=== PATIENT | female | born 1950 | race Caucasian/White ===

== ENCOUNTER 2020-01-09 00:33 | Outpatient (CLI) | payer MEDICARE, SELFPAY ==
[2020-01-09 18:31] LABS: SARS-CoV-2 RNA PCR Negative
== END 2020-01-09 00:34 | disposition home or self-care (01) ==
LOC: ANHCOVIDDT 00:34
PROVIDERS: PCP Internal Medicine; Visit Provider Internal Medicine Gastroenterology
DX: Z01.812 Encounter for preprocedural laboratory examination (principal); Z11.59 Encounter for screening for other viral diseases
CPT/HCPCS: 87635; C9803; U0003

== ENCOUNTER 2020-01-12 02:17 | Day surgery (SDC) | payer MEDICARE, SELFPAY ==
[2020-01-01 13:10] VITALS: BMI 29.1
[2020-01-12] MEDS: LACTATED RINGERS 1,000 ML 150 ML IV CONT (07:19)
[2020-01-12 07:23] VITALS: BP 139/75; PULSE 75; RESP 16; TEMP 36.7; O2SAT 100; BMI 10.5
--- NOTE | 2020-01-12 07:49 | P.PNAN_ITS ---
Anes - Initial Pre Proc Eval Procedure: Operation Date: 01/12/20 08:00 Proposed Procedures p Esophagogastroduodenoscopy - Lele Loredo MD Date/Time: 01/12/20 07:49 Surgeon: Lele Loredo MD Pre Op Diagnosis: Dysphagia Patient Data Age: 69 Gender: F Height: 5 ft 5 in Weight: 28.7 kg Last Vital Signs Temp 98.1 F 01/12/20 07:23 Pulse 75 01/12/20 07:23 Resp 16 01/12/20 07:23 BP 139/75 01/12/20 07:23 Pulse Ox 100 01/12/20 07:23 Allergies Allergy/AdvReac Type Severity Reaction Status Date / Time adhesive tape Allergy Intermediate Hives Verified 01/12/20 07:05 Home Medications Medication Instructions Recorded Confirmed Type alprazolam 0.5 mg PO PRN PRN 01/01/20 01/12/20 History atorvastatin 10 mg PO DAILY 01/01/20 01/12/20 History levothyroxine 25 mcg PO DAILY 01/01/20 01/12/20 History Patient hx anesthesia problems: none Family hx anesthesia problems: none [facility] Past Medical History Medical History (Updated 01/12/20 @ 07:49 by Sriram Mckinley MD) Anxiety Hyperlipidemia Hypothyroid Anes - Eval Final PreProcedure Day of Procedure 01/12/20 07:49 Patient weight: normal Heart: regular rate and rhythm Lungs: clear to auscultation Airway: Mallampati scale class II Neurological: alert and oriented Last oral intake: >/= 8 hours ASA classification: II Emergent: no Anesthetic plan: proceed Anesthesia type and monitoring: general GIVS and standard monitoring Informed Consent: The patient's anesthetic plan and its attendant risks and benefits were discussed with the patient/family/POA. Questions were solicited and answers provided to the satisfaction of the patient/family/POA.
--- NOTE | 2020-01-12 08:02 | P.CONGI_ITS ---
Assessment and Plan Assessment and plan (1) Dysphagia: Code(s): R13.10 - Dysphagia, unspecified Status: Acute Assessment and Plan: Patient reports difficulty swallowing food catching mid substernal portion of the chest. Most consistent with esophageal narrowing. Presumed bland basis of acid reflux. Plan is for EGD to assess more thoroughly. Possible dilatation of the esophagus. Further recommendations will be given after endoscopy. GI Consult Note Consult date/time: 01/12/20 08:02 HPI: Eboni Gomes is a 69 year old female seen in evaluation at the request of Dr Holder. Patient reports difficulty swallowing for many years. Perhaps for 5 years. Food will catch in the mid substernal portion of the chest. She states this happens more with solids than liquids. She does have a history of acid reflux. She has taken Prilosec for the last 2 months with significant i mprovement in symptoms. Patient denies any bleeding. She denies any weight loss. Past medical history is significant for sarcoidosis. Anxiety and hyperlipidemia. Review of Systems Review of Systems: All systems reviewed & are unremarkable except as noted in HPI and below PMFSH Past Medical History Medical History Anxiety Hyperlipidemia Hypothyroid Meds Home Medications and Allergies Home Medications Medication Instructions Recorded Confirmed Type alprazolam 0.5 mg PO PRN PRN 01/01/20 01/12/20 History atorvastatin 10 mg PO DAILY 01/01/20 01/12/20 History levothyroxine 25 mcg PO DAILY 01/01/20 01/12/20 History Allergies Allergy/AdvReac Type Severity Reaction Status Date / Time adhesive tape Allergy Intermediate Hives Verified 01/12/20 07:05 Vital Signs Vital Signs - 24 hr 01/12/20 07:23 Temperature 98.1 F Pulse Rate 75 Respiratory Rate 16 Blood Pressure 139/75 Pulse Oximetry 100 Exam Narrative: Exam Narrative: Physical exam reveals patient to be alert. Vital signs stable. HEENT exam unremarkable. Lungs are clear to auscultation and percussion. Heart is without murmur or extra sounds. Abdominal exam bowel sounds are present soft nontender with no hepatosplenomegaly. Digital external rectal exam deferred at this time.
[2020-01-12] MEDS: BENZOCAINE (*SP) 60 ML SPRAY CAN (HURRICAINE) 1 SPRAY MUCOUS MEM (08:15)
[2020-01-12 08:25] VITALS: BP 112/56; PULSE 64; RESP 19; O2SAT 99
[2020-01-12 08:35] VITALS: BP 119/61; PULSE 64; RESP 19; O2SAT 99
[2020-01-12 08:45] VITALS: BP 122/60; PULSE 61; RESP 22; O2SAT 100
== END 2020-01-12 09:05 | disposition home or self-care (01) ==
PROVIDERS: PCP Internal Medicine; Visit Provider Internal Medicine Gastroenterology
PROC: 0DJ08ZZ Inspection of Upper Intestinal Tract, Via Natural or Artificial Opening Endoscopic (ICD-10-PCS; CPT 43235; principal; 2020-01-12 08:00)
DX: K22.2 Esophageal obstruction (principal); K44.9 Diaphragmatic hernia without obstruction or gangrene; E03.9 Hypothyroidism, unspecified; E78.5 Hyperlipidemia, unspecified
CPT/HCPCS: 43235; 43450; 87635; C9803; J2704; J7120; U0003

== ENCOUNTER 2021-02-16 08:00 | Outpatient (CLI) | payer MEDICARE, SELFPAY ==
--- NOTE | 2021-02-16 12:08 | WPDPFTINT ---
PFT Procedure Performed PFT Procedure Performed Plethysmography (Lung Vol) Diffusing Cap (DLCO) Flow Vol Loop Spirometry w/o Bronchodil PFT Interpretation This is a pulmonary function test with spirometry, plethysmography and diffusing capacity. The test was performed and results interpreted in accordance with the 2019 and 2005 ATS/ERS Task Force guidelines respectively using the Global Lung Function Initiative-2012 reference equations. Patient demonstrated good effort and cooperation. Reproducibility criteria were met. The quality of the spirometry maneuver was Grade A. Findings: Spirometry: The contour the inspiratory and expiratory flow tracing are normal. The FVC is 2.83 L, 95% predicted. The FEV1 is 2.14 L, 93% predicted. The FEV1: FVC ratio 76%. Plethysmography: The total lung capacity is 4.88 L, 94% predicted. With functional residual capacity is 2.23 L, 75% predicted. The residual volume is 1.98 L, 89% predicted. Diffusing capacity: The absolute diffusion capacity is 16.6, 79% predicted. The diffusing capacity corrected for alveolar volume is 3.82, 90% predicted. Impression: The spirometry is normal without evidence of an obstructive abnormality. The lung volumes are normal. The diffusing capacity is normal. There are no prior studies for comparison
== END 2021-02-16 08:01 | disposition home or self-care (01) ==
PROVIDERS: PCP Internal Medicine; Visit Provider Internal Medicine
DX: R06.00 Dyspnea, unspecified (principal)
CPT/HCPCS: 94375; 94726; 94729

== ENCOUNTER 2022-11-20 08:35 | Outpatient (CLI) | payer MEDICARE, SELFPAY ==
--- NOTE | ~2022-11-20 | DEXA_ITS ---
Bone Density Report Name: ARGELIA CAVANAUGH Age: 72 Sex: Female Ethnicity: White Date of : 1950 Indication: postmenopausal; screening for osteoporosis; height loss; prior fracture; cancer; Referring Provider: TEREZA MOSHER Study: Bone densitometry was performed. Exam Date: November 20, 2022 Accession number: [id number] Bone Density: Region BMD T-score Z-score Classification AP Spine(L1-L4) 0.858 -1.7 0.5 Osteopenia Femoral Neck (Left) 0.611 -2.1 -0.3 Osteopenia Total Hip (Left) 0.797 -1.2 0.4 Osteopenia Femoral Neck (Right) 0.625 -2.0 -0.2 Osteopenia Total Hip (Right) 0.726 -1.8 -0.2 Osteopenia Total Hip Mean 0.762 -1.5 0.1 Osteopenia World Health Organization criteria for BMD impression classify patients as: Normal (T-score at or above -1.0), Osteopenia (T-score between -1.0 and -2.5), or Osteoporosis (T-score at or below -2.5). 10-year Fracture Risk: FRAX not reported because: Prior hip or vertebral fracture Clinical Information Provided by Patient: Have had a previous hip or vertebral fracture Has had a low trauma fracture Has used the following medications: Vitamin D, Calcium Has the following medical conditions: Cancer Patient maximum height was 65.5 Menopause Age: 41 No regular weight bearing exercise Drinks caffeinated beverages Onset of menses at age 16 Number of children 2 Impression: The patient has low bone mass, based on the Left Femoral Neck T-score. The patient has risk factors, including: previous fracture. Discussion: INCREASED RISK OF FRACTURE DUE TO HISTORY OF FRACTURE. The patient's previous fracture puts the patient at high risk of a future fracture. In untreated patients, the risk of osteoporotic fracture increases approximately two-fold for each 1.0 SD decrease in T-score. Low bone density is not the only risk factor for fracture; also consider factors such as patient's age, frailty or poor health, risk of falling, risk of injury, previous osteoporotic fracture, family history of osteoporosis, cigarette smoking, low body weight, etc. Not everyone with a low trauma fracture has osteoporosis; osteomalacia and other metabolic bone disorders should also be considered. Patients who have osteoporosis should be evaluated for specific diseases and conditions (secondary causes) that may cause or contribute to bone loss and fracture risk. National Osteoporosis Foundation (NOF) recommends pharmacologic intervention for patients with a prior hip or vertebral fracture regardless of BMD T-score. The patient should follow a healthful lifestyle (good nutrition with adequate calcium and vitamin D, and appropriate weight-bearing exercise). Follow-Up: Consider a repeat BMD and Vertebral Fracture Assessment (VFA) exam in 2 years or sooner if medically necessary, to reassess this srinivasan
== END 2022-11-20 08:36 | disposition home or self-care (01) ==
PROVIDERS: PCP Family Medicine; Visit Provider Family Medicine
DX: Z13.820 Encounter for screening for osteoporosis (principal); M85.88 Other specified disorders of bone density and structure, other site; M85.852 Other specified disorders of bone density and structure, left thigh; M85.851 Other specified disorders of bone density and structure, right thigh
CPT/HCPCS: 77080

== ENCOUNTER → 2022-11-20 15:09 | Outpatient (CLI) | payer MEDICARE, SELFPAY ==
--- NOTE | ~2022-11-20 | XR_ITS ---
Clinical Indication: Dyspnea, sarcoidosis PA and lateral views of the chest: Comparison: None Findings: The lungs are clear, without evidence of focal consolidation or pleural effusion. Cardiome diastinal silhouette is within normal limits. Bones and soft tissues are unremarkable. Impression: Normal chest. Reviewed, dictated and finalized at location . Impression: Normal chest.
== END ==
PROVIDERS: PCP Family Medicine; Visit Provider Family Medicine
DX: R06.00 Dyspnea, unspecified (principal)
CPT/HCPCS: 71046

== ENCOUNTER → 2022-11-26 13:34 | Outpatient (CLI) | payer MEDICARE, SELFPAY ==
--- NOTE | ~2022-11-26 | CT_ITS ---
EXAMINATION: CT chest high resolution wo ma DATE: 11/26/2022 13:49 INDICATION: Shortness of breath, sarcoidosis TECHNIQUE: Computed tomography (CT) of the chest was performed without intravenous contrast. The dose -length product (DLP) was 407.00 mGy-cm. Automated exposure control and iterative reconstruction tech nique were employed. COMPARISON: None FINDINGS: The lungs are free of acute opacities. A few scattered 2 to 3 mm nodules are noted in the u pper lobes. No pleural effusion or pneumothorax. Calcified coronary artery atherosclerosis is noted. Calcified pulmonary nodules are consistent with old granulomatous disease. No pathologically enlarge d thoracic lymph nodes are identified. The heart size is normal. There is a moderate-sized sliding hi atal hernia. Cysts of the the visualized liver measure up to 1.9 cm. Stones are present in the nondis tended gallbladder. There is a 4 cm cyst of the partially imaged left kidney. There is moderate thora cic spondylosis. There is an age-indeterminate burst fracture of L1. A healed left 10th rib fracture is noted. IMPRESSION: 1. A few scattered 2 to 3 mm nodules of the upper lobes which could reflect sarcoidosis or other old granulomatous disease. 2. Cholelithiasis without evidence of cholecystitis. Reviewed, dictated and finalized at location F. IMPRESSION: 1. A few scattered 2 to 3 mm nodules of the upper lobes which could reflect torsten coidosis or other old granulomatous disease. 2. Cholelithiasis without evidence of cholecystitis.
== END ==
PROVIDERS: PCP Family Medicine; Visit Provider Family Medicine
DX: R91.8 Other nonspecific abnormal finding of lung field (principal); K80.20 Calculus of gallbladder without cholecystitis without obstruction; D86.9 Sarcoidosis, unspecified; R06.00 Dyspnea, unspecified
CPT/HCPCS: 71250

== ENCOUNTER 2022-12-12 09:06 | Outpatient (CLI) | payer MEDICARE, SELFPAY ==
[2022-12-12 17:39] LABS: Basophils Absolute Auto 0.1 K/mm3 (0.0-0.1); Basophils Percent Auto 1.2 % (0.2-1.2); Eosinophils Absolute Auto 0.2 K/mm3 (0-0.3); Eosinophils Percent Auto 2.9 % (0-4.4); Hematocrit 25.9 % (37.0-47.0); Hemoglobin 7.2 g/dL (12.0-15.0); Immature Granulocyte Absolute 0.02 K/mm3 (0.00-0.031); Immature Granulocyte Percent A 0.3 % (0-0.5); Lymphocytes Absolute Auto 2.07 K/mm3 (0.9-3.2); Lymphocytes Percent Auto 30.5 % (18.3-44.2); Mean Corpuscular HGB Conc 27.8 g/dl (32-36); Mean Corpuscular Hemoglobin 20.7 pg (26-34); Mean Corpuscular Volume 74.4 fl (80-100); Mean Platelet Volume 11.9 fl (7.4-10.4); Monocytes Absolute Auto 0.5 K/mm3 (0.1-0.6); Monocytes Percent Auto 6.8 % (2.6-8.5); Neutrophils Percent Auto 58.3 % (45.5-73.1); Platelet Count Result 332 k/mm3 (150-375); Red Blood Count 3.48 M/mm3 (4.2-5.4); Red Cell Distribution Width 18.1 % (11.5-14.5); White Blood Count 6.8 K/mm3 (4.5-10.0)
[2022-12-12 18:24] LABS: Platelet Estimate Adequate (Adequate)
[2022-12-12 18:25] LABS: Hypochromasia 1+ (NORMAL); Schistocytes None Seen (NORMAL)
[2022-12-12 18:26] LABS: Anisocytosis 2+ (NORMAL)
[2022-12-12 20:39] LABS: LDL Cholesterol Direct 55 mg/dL
[2022-12-12 21:26] LABS: Alanine Aminotransferase 24 U/L (6-35); Alkaline Phosphatase 84 U/L (38-126); Anion Gap 8 mmol/L (8-16); Aspartate Amino Transferase 31 U/L (14-36); Bilirubin,Total 0.4 mg/dL (0.2-1.3); Blood Urea Nitrogen 13 mg/dL (7-17); Calcium 8.4 mg/dL (8.4-10.2); Carbon Dioxide 26 mmol/L (22-30); Chloride 105 mmol/L (98-107); Cholesterol 143 mg/dL (0-200); Estimated Glomerular Filt Rate > 60; Glucose 98 mg/dL (65-110); HDL Direct 63 mg/dL; Sodium 139 mmol/L (137-145); Triglycerides 134 mg/dL (<150)
[2022-12-12 21:33] LABS: Free T4 Free Thyroxine 1.16 ng/mL (0.78-2.19); Vitamin D 25 Hydroxy 24.6 ng/mL
== END 2022-12-12 09:07 | disposition home or self-care (01) ==
LOC: ANHGOSHLAB 09:08
PROVIDERS: PCP Family Medicine; Visit Provider Family Medicine
DX: E03.9 Hypothyroidism, unspecified (principal); E55.9 Vitamin D deficiency, unspecified; E78.5 Hyperlipidemia, unspecified; I10 Essential (primary) hypertension; R53.83 Other fatigue; R73.9 Hyperglycemia, unspecified
CPT/HCPCS: 36415; 80053; 80061; 82306; 83036; 84439; 84443; 85025

== ENCOUNTER 2022-12-27 09:24 | Outpatient (CLI) | payer MEDICARE, SELFPAY ==
[2022-12-27 09:46] LABS: Basophils Absolute Auto 0.1 K/mm3 (0.0-0.1); Basophils Percent Auto 1.4 % (0.2-1.2); Eosinophils Absolute Auto 0.2 K/mm3 (0-0.3); Eosinophils Percent Auto 2.4 % (0-4.4); Hematocrit 29.7 % (37.0-47.0); Hemoglobin 8.1 g/dL (12.0-15.0); Immature Granulocyte Absolute 0.04 K/mm3 (0.00-0.031); Immature Granulocyte Percent A 0.5 % (0-0.5); Lymphocytes Absolute Auto 2.37 K/mm3 (0.9-3.2); Lymphocytes Percent Auto 28.4 % (18.3-44.2); Mean Corpuscular HGB Conc 27.3 g/dl (32-36); Mean Corpuscular Volume 73.3 fl (80-100); Mean Platelet Volume 10.1 fl (7.4-10.4); Monocytes Absolute Auto 0.7 K/mm3 (0.1-0.6); Monocytes Percent Auto 8.4 % (2.6-8.5); Neutrophils Absolute Auto 4.9 K/mm3 (1.3-6.7); Neutrophils Percent Auto 58.9 % (45.5-73.1); Platelet Count Result 421 k/mm3 (150-375); Red Blood Count 4.05 M/mm3 (4.2-5.4); Red Cell Distribution Width 17.5 % (11.5-14.5); White Blood Count 8.3 K/mm3 (4.5-10.0)
[2022-12-27 09:56] LABS: Iron 31 ug/dL (37-170)
[2022-12-27 09:56] LABS: Appearance Urine Clear (Clear); Bacteria Urine None Seen /hpf; Bilirubin Urine Negative (Negative); Blood Urine Negative (Negative); Color Urine Yellow (Yellow); Glucose Urine UA Negative (Negative); Ketones Urine Negative (Negative); Leukocyte Esterase Ur Negative LEU/UL (NEGATIVE); Nitrate Urine Negative (Negative); Non Pathogenic Casts 0-2; Protein Urine Trace mg/dL (Negative); RBC Urine 0-2 /hpf (0-2); Specific Grav Ur 1.016 (1.001-1.035); Squamous Epithelial Cell Urine None seen /hpf (Few); Urobilinogen Urine 0.2 mg/dL (<2.0); WBC Urine 0-5 /hpf (0-3); pH Urine 5.5 (5.0-9.0)
[2022-12-27 10:02] LABS: Transferrin 361 mg/dL (206-381)
[2022-12-27 10:05] LABS: Percent Iron Saturation 6 % (20-50)
[2022-12-27 10:19] LABS: Add Urine Microscopic? YES
[2022-12-27 10:22] LABS: Anisocytosis 1+ (NORMAL); Hypochromasia 1+ (NORMAL); Platelet Estimate Increased (Adequate); Schistocytes None Seen (NORMAL)
== END 2022-12-27 09:25 | disposition home or self-care (01) ==
PROVIDERS: PCP Family Medicine; Visit Provider Family Medicine
DX: R30.0 Dysuria (principal); D64.9 Anemia, unspecified
CPT/HCPCS: 36415; 81001; 82728; 83540; 83550; 84466; 85025; 86850; 86900; 86901; 86920

== ENCOUNTER 2022-12-28 07:39 | Outpatient (RCR) | payer MEDICARE, SELFPAY ==
[2022-12-28] VITALS (8 sets, daily range): BP systolic 129–157; BP diastolic 59–73; PULSE 60–73; RESP 16–18; TEMP 36.6–36.8; O2SAT 98–100
[2022-12-28] MEDS: SODIUM CHLORIDE 0.9% IV 250 ML 30 ML IV CONT (08:21)
[2022-12-28] MEDS: ACETAMINOPHEN 325 MG TABLET 650 MG PO (08:21)
[2022-12-28] MEDS: FUROSEMIDE INJ 40 MG/4 ML VIAL 20 MG IV PUSH (11:09)
== END 2023-03-28 23:59 | disposition home or self-care (01) ==
LOC: ANHCPCTRAN 07:39
PROVIDERS: PCP Family Medicine; Visit Provider Family Medicine
DX: D64.9 Anemia, unspecified (principal)
CPT/HCPCS: 36415; 36430; 86920; 96374; A9270; J1940; J7050; P9016

== ENCOUNTER 2022-12-29 09:52 | Outpatient (CLI) | payer MEDICARE, SELFPAY ==
[2022-12-29 10:16] LABS: Basophils Absolute Auto 0.1 K/mm3 (0.0-0.1); Basophils Percent Auto 1.3 % (0.2-1.2); Eosinophils Absolute Auto 0.2 K/mm3 (0-0.3); Hematocrit 33.7 % (37.0-47.0); Hemoglobin 9.8 g/dL (12.0-15.0); Immature Granulocyte Absolute 0.04 K/mm3 (0.00-0.031); Immature Granulocyte Percent A 0.5 % (0-0.5); Lymphocytes Absolute Auto 2.28 K/mm3 (0.9-3.2); Mean Corpuscular HGB Conc 29.1 g/dl (32-36); Mean Corpuscular Hemoglobin 22.2 pg (26-34); Mean Corpuscular Volume 76.2 fl (80-100); Mean Platelet Volume 9.6 fl (7.4-10.4); Monocytes Absolute Auto 0.7 K/mm3 (0.1-0.6); Monocytes Percent Auto 8.8 % (2.6-8.5); Neutrophils Absolute Auto 4.3 K/mm3 (1.3-6.7); Neutrophils Percent Auto 56.4 % (45.5-73.1); Platelet Count Result 325 k/mm3 (150-375); Red Blood Count 4.42 M/mm3 (4.2-5.4); Red Cell Distribution Width 19.7 % (11.5-14.5); White Blood Count 7.6 K/mm3 (4.5-10.0)
[2022-12-29 11:21] LABS: Hypochromasia 1+ (NORMAL); Platelet Estimate Adequate (Adequate)
[2022-12-29 11:22] LABS: Anisocytosis 2+ (NORMAL); Microcytosis 1+ (NORMAL); Schistocytes None Seen (NORMAL)
== END 2022-12-29 09:53 | disposition home or self-care (01) ==
PROVIDERS: PCP Family Medicine; Visit Provider Family Medicine
DX: D64.9 Anemia, unspecified (principal)
CPT/HCPCS: 36415; 85025

== ENCOUNTER 2023-01-07 08:53 | Outpatient (NON) | payer MEDICARE, SELFPAY | END 2023-01-07 08:54 | disposition home or self-care (01) | LOC: ANHLAB 01-08 08:54 | PROVIDERS: Visit Provider Internal Medicine Gastroenterology | DX: K21.9 Gastro-esophageal reflux disease without esophagitis (principal) | CPT/HCPCS: 88305 ==

== ENCOUNTER 2023-01-07 11:53 | Day surgery (SDC) | payer MEDICARE, SELFPAY ==
[2023-01-01 11:47] VITALS: BMI 29.9
--- NOTE | 2023-01-04 15:04 | WPDANESEPPF ---
Anes - Initial Pre Proc Eval Procedure: Operation Date: 01/07/23 13:00 Proposed Procedures p Esophagogastroduodenoscopy - Lele Loredo MD s Diagnostic Colonoscopy - Lele Loredo MD Date/Time: 01/04/23 15:04 Surgeon: Lele Loredo MD Pre Op Diagnosis: Iron Deficiency Anemia Patient Data Age: 72 Gender: F Height: 1.65 m Weight: 81.5 kg Allergies Allergy/AdvReac Type Severity Reaction Status Date / Time adhesive tape Allergy Intermediate Hives Verified 01/07/23 12:21 lisinopril AdvReac Mild Cough Verified 01/07/23 12:21 Home Medications Medication Instructions Recorded Confirmed Type oxybutynin chloride 5 mg See Rx Instructions .Route 04/18/22 01/07/23 Rx tablet,extended release 24 hr .COMPLEX #90 tabs atorvastatin 10 mg tablet 10 mg PO QHS #90 tabs 05/14/22 01/07/23 Rx levothyroxine 25 mcg tablet 25 mcg PO DAILY #90 tabs 05/14/22 01/07/23 Rx albuterol sulfate 90 mcg/actuation 2 puff inhalation Q4H PRN 12/06/22 01/07/23 Rx aerosol inhaler shortness of breath or wheezing #8.5 grams inhalational spacing device #1 ea 12/06/22 01/07/23 Rx (Aerochamber MV spacer) alprazolam 0.5 mg tablet 0.5 mg PO DAILY PRN anxiety #30 12/26/22 01/07/23 Rx tabs omeprazole 40 mg capsule,delayed 40 mg PO DAILY #90 caps 12/31/22 01/07/23 Rx release sodium,potassium,mag sulfates 17.5 See Rx Instructions PO .COMPLEX 12/31/22 01/07/23 Rx gram-3.13 gram-1.6 gram oral soln #354 mL (Suprep Bowel Prep Kit) losartan 25 mg tablet (Cozaar) 25 mg PO DAILY 01/01/23 01/07/23 History Patient hx anesthesia problems: none Family hx anesthesia problems: none Results Review: All pre-operative results and documents have been reviewed as part of the pre-operative evaluation. [facility] Past Medical History Medical History (Updated 01/04/23 @ 15:28 by Savage Carpenter, ValentinD) Anxiety Essential hypertension Hyperlipidemia Hypothyroid Obesity Sarcoidosis Family History Family History Father Alcoholism Grandparent Diabetes mellitus Hypertension Heart problem Mother Hypertension Heart problem Son Hypertension Depression Anxiety Sibling Hypertension Heart problem Atrial fibrillation Brother Social History Social History Smoking status: Never smoker Additional smoking assessment comments: been 40 smoker, smoked for 10 years 15 to 25 or 30. Alcohol intake: never Substance use: never Substance use type: does not use Lack of Transportation: No Lack of Food: Never True Current Housing: I Have Housing Concerned About Future Housing: No Difficulty Paying Gas/Electric Bills: No Difficulty Paying for Meds: No Currently Unemployed: No Education: Bachelor's Degree Difficulty w/ Childcare or Family Care: No Living arrangements: alone Occupation/Education: retired Spiritual care concerns: No Agree to blood products: Yes Anes - Eval Final PreProcedure Day of Procedure 01/04/23 15:04 Patient weight: normal Heart: regular rate and rhythm Lungs: clear to auscultation Airway: Mallampati scale class II Neurological: alert and oriented Last oral intake: >/= 8 hours ASA classification: III Emergent: no Anesthetic plan: proceed Anesthesia type and monitoring: general GIVS and standard monitoring Results Review: All pre-operative results and documents have been reviewed as part of the pre-operative evaluation. Informed Consent: The patient's anesthetic plan and its attendant risks and benefits were discussed with the patient/family/POA. Questions were solicited and answers provided to the satisfaction of the patient/family/POA.
[2023-01-07 12:20] VITALS: BP 168/86; PULSE 72; RESP 20; TEMP 36.5; O2SAT 100
--- NOTE | 2023-01-07 12:43 | PM.HPGS ---
History of Present Illness History of Present Illness Consent: Risks, benefits, and alternatives have been discussed and questions answered. Patient agrees to proceed with procedure. Chief complaint: Iron Deficiency Anemia Narrative: Eboni Gomes is a 72 year old female Presents for colonoscopy and EGD because of iron deficiency anemia. Patient denies abdominal pain. She has had no obvious bleeding. Patient has a history of GE reflux disease. 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 She has had no significant increase in dysphagia. She feels much improved. Currently she is on chronic omeprazole 40mg p.o. daily as treatment for her GE reflux. She denies heartburn. Family history noncontributory. Review of Systems Review of Systems: Review of systems noncontributory. [facility] Past Medical History Medical History (Updated 01/04/23 @ 15:28 by Savage Carpenter, PharmD) Anxiety Essential hypertension Hyperlipidemia Hypothyroid Obesity Sarcoidosis Family History Family History Father Alcoholism Grandparent Diabetes mellitus Hypertension Heart problem Mother Hypertension Heart problem Son Hypertension Depression Anxiety Sibling Hypertension Heart problem Atrial fibrillation Brother Social History Social History Smoking status: Never smoker Additional smoking assessment comments: been 40 smoker, smoked for 10 years 15 to 25 or 30. Alcohol intake: never Substance use: never Substance use type: does not use Lack of Transportation: No Lack of Food: Never True Current Housing: I Have Housing Concerned About Future Housing: No Difficulty Paying Gas/Electric Bills: No Difficulty Paying for Meds: No Currently Unemployed: No Education: Bachelor's Degree Difficulty w/ Childcare or Family Care: No Living arrangements: alone Occupation/Education: retired Spiritual care concerns: No Agree to blood products: Yes Meds Home Medications and Allergies Home Medications Medication Instructions Recorded Confirmed Type oxybutynin chloride 5 mg See Rx Instructions .Route 04/18/22 01/07/23 Rx tablet,extended release 24 hr .COMPLEX #90 tabs atorvastatin 10 mg tablet 10 mg PO QHS #90 tabs 05/14/22 01/07/23 Rx levothyroxine 25 mcg tablet 25 mcg PO DAILY #90 tabs 05/14/22 01/07/23 Rx albuterol sulfate 90 mcg/actuation 2 puff inhalation Q4H PRN 12/06/22 01/07/23 Rx aerosol inhaler shortness of breath or wheezing #8.5 grams inhalational spacing device #1 ea 12/06/22 01/07/23 Rx (Aerochamber MV spacer) alprazolam 0.5 mg tablet 0.5 mg PO DAILY PRN anxiety #30 12/26/22 01/07/23 Rx tabs omeprazole 40 mg capsule,delayed 40 mg PO DAILY #90 caps 12/31/22 01/07/23 Rx release sodium,potassium,mag sulfates 17.5 See Rx Instructions PO .COMPLEX 12/31/22 01/07/23 Rx gram-3.13 gram-1.6 gram oral soln #354 mL (Suprep Bowel Prep Kit) losartan 25 mg tablet (Cozaar) 25 mg PO DAILY 01/01/23 01/07/23 History Allergies Allergy/AdvReac Type Severity Reaction Status Date / Time adhesive tape Allergy Intermediate Hives Verified 01/07/23 12:21 lisinopril AdvReac Mild Cough Verified 01/07/23 12:21 Vital Signs Vital Signs - 24 hr 01/07/23 12:20 Temperature 97.7 F Pulse Rate 72 Respiratory Rate 20 Blood Pressure 168/86 H Pulse Oximetry 100 Oxygen Delivery Room Air Exam Narrative: Physical exam reveals patient be alert. Vital signs stable. HEENT exam is unremarkable. Patient is anicteric. Lungs are clear to auscultation and percussion. Heart is without murmur or extra sounds. Abdomen bowel sounds are present soft nontender with no organomegaly. Digital external rectal exam normal. Assessment and Plan Assessment and plan (1) Iron deficiency anemia, unspecified: Code(s): D50.9 - Iron defic
[2023-01-07] MEDS: LACTATED RINGERS 1,000 ML 150 ML IV CONT (12:46)
[2023-01-07 13:32] VITALS: BP 107/72; PULSE 67; RESP 16; O2SAT 100
[2023-01-07 13:42] VITALS: BP 140/60; PULSE 52; RESP 16; O2SAT 100
[2023-01-07 13:51] VITALS: BP 142/59; PULSE 57; RESP 16; O2SAT 100
--- NOTE | 2023-01-07 14:22 | WPDANESPN ---
Anes - Prog Note Post-Op Date/Time: 01/07/23 14:22 Cardiovascular status: normal Respiratory status: normal Airway patency: baseline Mental status: baseline Post-Op hydration status: normal Vital Signs: Last Vital Signs Temp 36.5 C 01/07/23 12:20 Pulse 57 L 01/07/23 13:51 Resp 16 01/07/23 13:51 BP 142/59 H 01/07/23 13:51 Pulse Ox 100 01/07/23 13:51 O2 Del Method Room Air 01/07/23 13:51 Pain Score (VAS): 0 I/O: Intake & Output 01/06/23 01/07/23 01/07/23 23:59 07:59 15:59 Intake Total 1000 Balance 1000 Post-procedural complaints: none Patient Feedback: Patient satisfied with anesthetic care.
== END 2023-01-07 13:59 | disposition home or self-care (01) ==
PROVIDERS: PCP Family Medicine; Visit Provider Internal Medicine Gastroenterology
PROC: 0DJ08ZZ Inspection of Upper Intestinal Tract, Via Natural or Artificial Opening Endoscopic (ICD-10-PCS; CPT 43235; principal; 2023-01-07 13:00)
PROC: 0DJD8ZZ Inspection of Lower Intestinal Tract, Via Natural or Artificial Opening Endoscopic (ICD-10-PCS; CPT 45378; 2023-01-07 13:00)
DX: D50.9 Iron deficiency anemia, unspecified (principal)
CPT/HCPCS: 45378; 43450; 43239

== ENCOUNTER 2023-02-11 10:36 | Outpatient (CLI) | payer MEDICARE, SELFPAY ==
[2023-02-11 10:55] LABS: Basophils Absolute Auto 0.1 K/mm3 (0.0-0.1); Basophils Percent Auto 1.1 % (0.2-1.2); Eosinophils Absolute Auto 0.3 K/mm3 (0-0.3); Eosinophils Percent Auto 3.7 % (0-4.4); Hematocrit 35.6 % (37.0-47.0); Hemoglobin 10.9 g/dL (12.0-15.0); Immature Granulocyte Absolute 0.02 K/mm3 (0.00-0.031); Immature Granulocyte Percent A 0.2 % (0-0.5); Lymphocytes Absolute Auto 2.64 K/mm3 (0.9-3.2); Lymphocytes Percent Auto 32.9 % (18.3-44.2); Mean Corpuscular HGB Conc 30.6 g/dl (32-36); Mean Corpuscular Hemoglobin 25.9 pg (26-34); Mean Corpuscular Volume 84.6 fl (80-100); Mean Platelet Volume 10.7 fl (7.4-10.4); Monocytes Absolute Auto 0.6 K/mm3 (0.1-0.6); Monocytes Percent Auto 7.8 % (2.6-8.5); Neutrophils Absolute Auto 4.4 K/mm3 (1.3-6.7); Neutrophils Percent Auto 54.3 % (45.5-73.1); Platelet Count Result 240 k/mm3 (150-375); Red Blood Count 4.21 M/mm3 (4.2-5.4); Red Cell Distribution Width 23.2 % (11.5-14.5)
[2023-02-11 11:21] LABS: Platelet Estimate Adequate (Adequate)
[2023-02-11 11:23] LABS: Anisocytosis 1+ (NORMAL); Ovalocytes 1+ (NORMAL); Poikilocytosis 1+ (NORMAL); Schistocytes None Seen (NORMAL)
== END 2023-02-11 10:37 | disposition home or self-care (01) ==
PROVIDERS: PCP Family Medicine; Visit Provider Internal Medicine Gastroenterology
DX: D50.9 Iron deficiency anemia, unspecified (principal)
CPT/HCPCS: 36415; 85025

== ENCOUNTER 2023-03-06 14:39 | Outpatient (CLI) | payer MEDICARE, SELFPAY ==
[2023-03-06 18:48] LABS: Basophils Absolute Auto 0.1 K/mm3 (0.0-0.1); Basophils Percent Auto 1.4 % (0.2-1.2); Eosinophils Absolute Auto 0.2 K/mm3 (0-0.3); Eosinophils Percent Auto 3.1 % (0-4.4); Hematocrit 35.2 % (37.0-47.0); Immature Granulocyte Absolute 0.03 K/mm3 (0.00-0.031); Immature Granulocyte Percent A 0.4 % (0-0.5); Lymphocytes Absolute Auto 2.16 K/mm3 (0.9-3.2); Lymphocytes Percent Auto 30.5 % (18.3-44.2); Mean Corpuscular HGB Conc 31.3 g/dl (32-36); Mean Corpuscular Hemoglobin 27.6 pg (26-34); Mean Corpuscular Volume 88.2 fl (80-100); Mean Platelet Volume 12.1 fl (7.4-10.4); Monocytes Absolute Auto 0.6 K/mm3 (0.1-0.6); Monocytes Percent Auto 8.2 % (2.6-8.5); Neutrophils Percent Auto 56.4 % (45.5-73.1); Nucleated Red Blood Cells Absolute Auto 0.1 K/mm3 (0.0-0.012); Nucleated Red Blood Cells Perc 0.7 % (0.0-0.2); Platelet Count Result 271 k/mm3 (150-375); Red Blood Count 3.99 M/mm3 (4.2-5.4); Red Cell Distribution Width 20.9 % (11.5-14.5); White Blood Count 7.1 K/mm3 (4.5-10.0)
[2023-03-06 19:21] LABS: Iron 74 ug/dL (37-170)
[2023-03-06 19:24] LABS: Magnesium 2.1 mg/dL (1.6-2.3)
[2023-03-06 19:30] LABS: Percent Iron Saturation 17 % (20-50)
[2023-03-06 19:56] LABS: Ferritin 8.28 ng/mL (11.1-264)
[2023-03-06 20:36] LABS: Folic Acid > 20.0 ng/mL (2.76->20); Vitamin B12 > 1000.0 pg/mL (239-931)
== END 2023-03-06 14:40 | disposition home or self-care (01) ==
LOC: ANHGOSHLAB 14:44
PROVIDERS: PCP Family Medicine; Visit Provider Family Medicine
DX: D64.9 Anemia, unspecified (principal); R25.2 Cramp and spasm
CPT/HCPCS: 36415; 82607; 82728; 82746; 83540; 83550; 83735; 85025

== ENCOUNTER 2023-05-25 10:48 | Emergency (ER) | payer MEDICARE, SELFPAY ==
--- NOTE | ~2023-05-25 | CT_ITS ---
EXAMINATION: CT chest high resolution wo co DATE: 05/25/2023 15:25 INDICATION: Cough for 3 months TECHNIQUE: Computed tomography (CT) of the chest was performed without intravenous contrast. The dose -length product was 280.93 mGy-cm. Automated exposure control and iterative reconstruction technique were employed. COMPARISON: CT dated 11/26/2022 FINDINGS: Heart size normal. Large hiatal hernia. No thoracic lymphadenopathy. There is atheroscleros is of the aorta and coronary arteries. Gallstones. There are left renal cysts. Nonobstructing 3 mm le ft renal stone. There are scattered calcified granulomas. There are additional pulmonary nodules scat tered throughout both lungs measuring 3 mm or less, likely benign. No endobronchial lesions. No pneum othorax. Moderate thoracic spondylosis. There are compression fractures of T6 and L1 which are chroni c. IMPRESSION: 1. No acute cardiopulmonary disease. 2: Small bilateral pulmonary nodules measuring 3 mm or less, likely benign. Consider follow-up low d ose CT chest in 12 months. Reviewed, dictated and finalized at location A. . JAVA DEVELOPER IMPRESSION: 1. No acute cardiopulmonary disease. 2: Small bilateral pulmonary nodules measuring 3 mm or less, likely benign. Co nsider follow-up low dose CT chest in 12 months.
--- NOTE | ~2023-05-25 | XR_ITS ---
EXAMINATION: XR chest 2V DATE: 05/25/2023 12:14 INDICATION: Psychosis presenting with upper respiratory tract infection with cough and congestion TECHNIQUE: PA and lateral views of the chest were obtained. COMPARISON: Chest radiograph dated 11/20/[address] dated 11/26/2022 FINDINGS: Small calcified nodule at the lateral right lower lung zone consistent with old granulomatous disease . No new airspace opacities, pulmonary edema, pleural effusion or pneumothorax. Retrocardiac opacity corresponding to a moderate-sized sliding-type hiatal hernia. Cardiac mediastinal silhouette is other lemus normal. Chronic T6 compression fracture with mild to moderate thoracic spondylosis. IMPRESSION: 1. No acute cardiopulmonary disease. Reviewed, dictated and finalized at location A. UNITY CASE MANAGER
[2023-05-25 10:56] VITALS: BP 180/81; PULSE 104; RESP 18; TEMP 37.2; O2SAT 98
[2023-05-25 11:21] VITALS: O2SAT 99
[2023-05-25 12:10] LABS: Basophils Absolute Auto 0.1 K/mm3 (0.0-0.1); Basophils Percent Auto 0.7 % (0.2-1.2); Eosinophils Absolute Auto 0.1 K/mm3 (0-0.3); Eosinophils Percent Auto 0.5 % (0-4.4); Hematocrit 34.9 % (37.0-47.0); Hemoglobin 10.7 g/dL (12.0-15.0); Immature Granulocyte Absolute 0.12 K/mm3 (0.00-0.031); Immature Granulocyte Percent A 0.9 % (0-0.5); Lymphocytes Absolute Auto 2.15 K/mm3 (0.9-3.2); Lymphocytes Percent Auto 15.6 % (18.3-44.2); Mean Corpuscular HGB Conc 30.7 g/dl (32-36); Mean Corpuscular Hemoglobin 26.8 pg (26-34); Mean Corpuscular Volume 87.5 fl (80-100); Mean Platelet Volume 11.1 fl (7.4-10.4); Monocytes Absolute Auto 1.3 K/mm3 (0.1-0.6); Monocytes Percent Auto 9.3 % (2.6-8.5); Neutrophils Absolute Auto 10.1 K/mm3 (1.3-6.7); Platelet Count Result 329 k/mm3 (150-375); Red Blood Count 3.99 M/mm3 (4.2-5.4); Red Cell Distribution Width 12.8 % (11.5-14.5); White Blood Count 13.8 K/mm3 (4.5-10.0)
[2023-05-25 12:20] LABS: Alanine Aminotransferase 23 U/L (6-35); Albumin Level 4.3 g/dL (3.5-5.1); Alkaline Phosphatase 104 U/L (38-126); Anion Gap 11 mmol/L (8-16); Aspartate Amino Transferase 23 U/L (14-36); Bilirubin,Total 0.4 mg/dL (0.2-1.3); Blood Urea Nitrogen 24 mg/dL (7-17); Calcium 9.5 mg/dL (8.4-10.2); Carbon Dioxide 26 mmol/L (22-30); Chloride 104 mmol/L (98-107); Estimated CRCL calculation 49 ml/min; Estimated Glomerular Filt Rate 55; Glucose 120 mg/dL (65-110); Potassium 3.3 mmol/L (3.4-5.0); Sodium 141 mmol/L (137-145)
--- NOTE | 2023-05-25 12:28 | ED.URI ---
HPI - URI/Sore Throat General Chief Complaint: Upper Respiratory Infection Stated Complaint: uri sent from urgent care Time Seen by Provider: 05/25/23 11:17 Source: patient, RN notes reviewed and old records reviewed Mode of arrival: ambulatory Limitations: no limitations History of Present Illness HPI Narrative: This is a 72 year old female with history of hypertension, anemia, and sarcoidosis who presents for evaluation of cough. Patient states she has had an intermittent cough since February 2023. She reports initially cough was dry but then it became productive. She reports this cough will resolve for 1 week and return over the past couple months. She reports cough got worse and it is productive with yellow sputum with blood tinged. She denies fever, shortness of breath, chest pain, vomiting, diarrhea, melena. She was evaluated at [place] urgent care and she reports testing negative for covid and flu. She was started on Amoxicillin and prednisone. She states her symptoms have not improved. She came to ER to get chest xray . She also wants labs to check her chronic anemia. She reports requiring blood transfusion several months ago and she was placed on iron supplementation. She took 3 months of iron and she is due to get hemoglobin rechecked so she would like it to be checked here. She denies any bleeding. Related Data Allergies Allergy/AdvReac Type Severity Reaction Status Date / Time adhesive tape Allergy Intermediate Hives Verified 05/25/23 10:59 lisinopril AdvReac Mild Cough Verified 05/25/23 10:59 Review of Systems Constitutional: Constitutional: Denies fatigue and Denies weakness ENT: Reports nasal congestion Cardiovascular: Cardiovascular: Denies syncope, Denies rapid heart rate, Denies irregular heart rhythm, Denies leg edema and Denies dyspnea Respiratory: Respiratory: Denies chest congestion, Reports cough, Reports hemoptysis, Denies excessive phlegm production and Denies dyspnea Gastrointestinal: Gastrointestinal: Denies abdominal pain, Denies hematochezia, Denies diarrhea and Denies vomiting Genitourinary: Genitourinary: Denies hematuria and Denies dysuria Musculoskeletal: Musculoskeletal: Denies joint swelling, Denies loss of height and Denies muscle weakness Neurologic: Denies syncope, Denies focal weakness and Denies weakness PMFSH Past Medical History Medical History (Updated 05/25/23 @ 16:09 by Farheen Celaya MD) Anemia Anxiety Essential hypertension Hyperlipidemia Hypothyroid Obesity Sarcoidosis Family History Family History Father Alcoholism Grandparent Diabetes mellitus Hypertension Heart problem Mother Hypertension Heart problem Son Hypertension Depression Anxiety Sibling Hypertension Heart problem Atrial fibrillation Brother Social History Social History Smoking status: Never smoker Additional smoking assessment comments: been 40 smoker, smoked for 10 years 15 to 25 or 30. Alcohol intake: never Substance use: never Substance use type: does not use Lack of Transportation: No Lack of Food: Never True Current Housing: I Have Housing Concerned About Future Housing: No Difficulty Paying Gas/Electric Bills: No Difficulty Paying for Meds: No Currently Unemployed: No Education: Bachelor's Degree Difficulty w/ Childcare or Family Care: No Living arrangements: alone Occupation/Education: retired Spiritual care concerns: No Agree to blood products: Yes Exam Const: General: no acute distress and alert Nutritional Appearance: well nourished Orientation/consciousness: patient oriented x3 Limitations: no limitations HENMT: Head: normal to inspection Mouth: Yes Normal oral and palatal mucosa present, Yes lip normal and Yes moist mucous membranes Eyes: Conjunctivae: conjunctival abnormality right conjunctiva
[2023-05-25 12:30] LABS: Partial Thromboplastin Time 25.8 SECONDS (22.3-36.8); Prothrombin Time 13.3 Seconds (11.1-14.7)
[2023-05-25] MEDS: POTASSIUM CHLORIDE 20 MEQ ER TABLET 40 MEQ PO (12:36)
[2023-05-25 12:46] LABS: Influenza A QL RT-PCR Negative (Negative); Influenza B QL RT-PCR Negative (Negative); RSV RNA, RT-PCR Negative (Negative); SARS-CoV-2 RNA PCR Negative (Negative)
[2023-05-25 16:15] VITALS: RESP 16
== END 2023-05-25 16:15 | disposition home or self-care (01) ==
PROVIDERS: Emergency Provider General Practice; PCP Family Medicine
DX: R05.3 Chronic cough (principal); H10.31 Unspecified acute conjunctivitis, right eye; D64.9 Anemia, unspecified; Z20.822 Contact with and (suspected) exposure to COVID-19; I10 Essential (primary) hypertension; E78.5 Hyperlipidemia, unspecified; E03.9 Hypothyroidism, unspecified; E66.9 Obesity, unspecified; D86.9 Sarcoidosis, unspecified; Z68.31 Body mass index [BMI] 31.0-31.9, adult; R91.1 Solitary pulmonary nodule; Z87.891 Personal history of nicotine dependence
CPT/HCPCS: 36415; 71046; 71250; 80053; 85025; 85610; 85730; 87637; 99284; A9270

== ENCOUNTER → 2023-07-04 09:30 | Outpatient (CLI) | payer MEDICARE, SELFPAY ==
--- NOTE | ~2023-07-04 | XR_ITS ---
XR shoulder LT min 2V DATE: 07/04/2023 10:06 INDICATION: Chronic left shoulder pain, reduced range of motion TECHNIQUE: 4 views COMPARISON: None FINDINGS: There is diffuse osteopenia. There is apophyseal joint and uncovertebral joint spurring in the included lower cervical spine. Levoscoliosis and degenerative spurring of the thoracic spine. No fracture or dislocation, periosteal reaction or bone destruction or abnormal soft tissue calcifica tion of the left shoulder is detected. Normal alignment at the acromioclavicular and glenohumeral joints. IMPRESSION: Osteopenia Degenerative changes of the cervical and thoracic spine Reviewed, dictated and finalized at location L. [employer]
== END ==
PROVIDERS: PCP Family Medicine; Visit Provider Family Medicine
DX: M85.812 Other specified disorders of bone density and structure, left shoulder (principal); M19.012 Primary osteoarthritis, left shoulder
CPT/HCPCS: 73030

== ENCOUNTER 2023-09-04 08:11 | Outpatient (CLI) | payer MEDICARE, SELFPAY ==
--- NOTE | ~2023-09-04 | CT_ITS ---
EXAMINATION: CT sinus wo con DATE: 09/04/2023 08:34 INDICATION: Chronic sinusitis, unspecified. TECHNIQUE: Computed tomography (CT) of the paranasal sinuses was performed without intravenous contra st. Iterative reconstruction technique was employed. The dose-length product was 401.69 mGy-cm. COMPARISON: None FINDINGS: There is mild mucosal thickening in the frontal, bilateral ethmoid, right sphenoid, and perri ateral maxillary sinuses. There is rightward deviation of posterior nasal septum. The ostiomeatal uni ts are patent. There is a Hollie cell on the right. IMPRESSION: 1. Mild mucosal thickening in the paranasal sinuses. 2. Rightward deviation of posterior nasal septum. Reviewed, dictated and finalized at location A.
== END 2023-09-04 08:12 ==
PROVIDERS: PCP Family Medicine; Visit Provider Otolaryngology
DX: J32.9 Chronic sinusitis, unspecified (principal); J34.2 Deviated nasal septum
CPT/HCPCS: 70486

== ENCOUNTER 2023-09-24 11:19 | Outpatient (CLI) | payer MEDICARE, SELFPAY ==
[2023-09-24 11:51] LABS: Basophils Absolute Auto 0.1 K/mm3 (0.0-0.1); Eosinophils Absolute Auto 0.2 K/mm3 (0-0.3); Eosinophils Percent Auto 3.4 % (0-4.4); Hematocrit 30.1 % (37.0-47.0); Hemoglobin 8.6 g/dL (12.0-15.0); Immature Granulocyte Absolute 0.02 K/mm3 (0.00-0.031); Immature Granulocyte Percent A 0.3 % (0-0.5); Lymphocytes Absolute Auto 1.58 K/mm3 (0.9-3.2); Lymphocytes Percent Auto 27.2 % (18.3-44.2); Mean Corpuscular HGB Conc 28.6 g/dl (32-36); Mean Corpuscular Hemoglobin 22.6 pg (26-34); Monocytes Absolute Auto 0.8 K/mm3 (0.1-0.6); Monocytes Percent Auto 14.1 % (2.6-8.5); Neutrophils Absolute Auto 3.1 K/mm3 (1.3-6.7); Platelet Count Result 282 k/mm3 (150-375); Red Blood Count 3.81 M/mm3 (4.2-5.4); Red Cell Distribution Width 14.6 % (11.5-14.5); White Blood Count 5.8 K/mm3 (4.5-10.0)
[2023-09-24 12:00] LABS: Platelet Estimate Adequate (Adequate); Schistocytes None Seen
[2023-09-24 12:01] LABS: Anisocytosis 1+; Hypochromasia 1+; Microcytosis 1+ (NORMAL)
[2023-09-24 12:02] LABS: Giant Platelets Present
[2023-09-24 13:14] LABS: Erythrocyte Sedimentation Rate 40 mm/hr (0-20)
[2023-09-24 13:21] LABS: Hemoglobin A1C 5.8 % (<5.7)
[2023-09-24 16:35] LABS: Iron 24 ug/dL (37-170)
[2023-09-24 16:40] LABS: Alanine Aminotransferase 26 U/L (6-35); Alkaline Phosphatase 97 U/L (38-126); Anion Gap 6 mmol/L (4-12); Aspartate Amino Transferase 28 U/L (14-36); Bilirubin,Total 0.3 mg/dL (0.2-1.3); Blood Urea Nitrogen 16 mg/dL (7-17); CRP 1.7 mg/dL (<1.0); Calcium 8.8 mg/dL (8.4-10.2); Carbon Dioxide 26 mmol/L (22-30); Chloride 106 mmol/L (98-107); Estimated Glomerular Filt Rate > 60; Glucose 88 mg/dL (65-110); Lactate Dehydrogenase 198 U/L (120-246); Potassium 3.8 mmol/L (3.4-5.0); Sodium 138 mmol/L (137-145)
[2023-09-24 17:40] LABS: Immunoglobulin A 259 mg/dL (70-400); Immunoglobulin G 1094 mg/dL (700-1600); Immunoglobulin M 99 mg/dL (40-230)
[2023-09-24 17:44] LABS: Percent Iron Saturation 5 % (20-50)
[2023-09-24 18:29] LABS: Ferritin 7.31 ng/mL (11.1-264)
[2023-09-24 18:33] LABS: Folic Acid > 20.0 ng/mL (2.76->20)
[2023-09-26 11:23] LABS: Kappa\\Lambda Light Chains 1.07 (0.26-1.65); Lambda Light Chain 30.3 mg/L (5.7-26.3)
[2023-09-27 12:47] LABS: Methylmalonic Acid 148 nmol/L (87-318)
[2023-09-27 15:50] LABS: Albumin 3.6 g/dL (3.8-4.8); Alpha 1 Globulin 0.4 g/dL (0.2-0.3); Beta 1 Globulin 0.6 g/dL (0.4-0.6); Gamma Globulin 1.1 g/dL (0.8-1.7)
[2023-10-01 13:18] LABS: Soluble Transferrin Receptor 3.53 mg/L (0.76-1.76)
== END 2023-09-24 11:20 | disposition home or self-care (01) ==
LOC: ANHLAB 11:22
PROVIDERS: Nurse Practitioner Family; PCP Family Medicine; Visit Provider Internal Medicine Hematology & Oncology
DX: D72.829 Elevated white blood cell count, unspecified (principal); D50.8 Other iron deficiency anemias; R79.9 Abnormal finding of blood chemistry, unspecified
CPT/HCPCS: 36415; 80053; 82607; 82728; 82746; 82784; 83036; 83540; 83550; 83615; 83883; 83921; 84155; 84165; 84238; 85025; 85652; 86140

== ENCOUNTER 2023-12-09 10:37 | Outpatient (CLI) | payer MEDICARE, SELFPAY ==
[2023-12-09 11:03] LABS: Hematocrit 36.6 % (37.0-47.0); Hemoglobin 11.6 g/dL (12.0-15.0); Mean Corpuscular HGB Conc 31.7 g/dl (32-36); Mean Corpuscular Hemoglobin 27.1 pg (26-34); Mean Corpuscular Volume 85.5 fl (80-100); Mean Platelet Volume 10.6 fl (7.4-10.4); Platelet Count Result 270 k/mm3 (150-375); Red Blood Count 4.28 M/mm3 (4.2-5.4); Red Cell Distribution Width 20.8 % (11.5-14.5); White Blood Count 6.7 K/mm3 (4.5-10.0)
[2023-12-09 11:41] LABS: Iron 55 ug/dL (37-170)
[2023-12-09 11:50] LABS: Percent Iron Saturation 16 % (20-50)
== END 2023-12-09 10:38 | disposition home or self-care (01) ==
LOC: ANHLAB 10:39
PROVIDERS: PCP Family Medicine; Visit Provider Internal Medicine Hematology & Oncology
DX: D50.8 Other iron deficiency anemias (principal)
CPT/HCPCS: 36415; 82728; 83540; 83550; 85027

== ENCOUNTER 2023-12-11 09:48 | Outpatient (CLI) | payer MEDICARE, SELFPAY ==
--- NOTE | 2023-12-11 10:50 | ECG_ITS ---
Test Date: 2023-12-11 11:01:52 Measurements Intervals [place]mar Rate: 68 P: 36 CT: 127 QRS: -10 QRSD: 94 T: 29 QT: 406 QTc: 434 Interpretive Statements SINUS RHYTHM WITH OCCASIONAL SUPRAVENTRICULAR PREMATURE COMPLEXES MODERATE VOLTAGE CRITERIA FOR LVH, CONSIDER NORMAL VARIANT [MEETS CRITERIA IN ONE OF: R(aVL), S(V1), R(V5), R(V5/V6)+S(V1)] ABNORMAL ECG No previous ECG available for comparison Electronically Signed On 12-11-2023 15:15:33 CDT by Ramón Lara M.D.
[2023-12-11 11:29] LABS: Hematocrit 37.1 % (37.0-47.0); Hemoglobin 11.6 g/dL (12.0-15.0)
== END 2023-12-11 09:49 | disposition home or self-care (01) ==
LOC: ANHSURGERY 09:53
PROVIDERS: Anesthesiology; PCP Family Medicine; Visit Provider Surgery
DX: K44.9 Diaphragmatic hernia without obstruction or gangrene (principal); I10 Essential (primary) hypertension; Z01.818 Encounter for other preprocedural examination; R94.31 Abnormal electrocardiogram [ECG] [EKG]
CPT/HCPCS: 36415; 85014; 85018; 86850; 86900; 86901; 93005

== ENCOUNTER 2023-12-18 00:53 | Day surgery (SDC) | payer MEDICARE, SELFPAY ==
--- NOTE | 2023-12-11 09:54 | PC.NURSE ---
Addendum entered by Ayesha Villanueva RN 12/11/23 10:45: WRITTEN INSTRUCTIONS FROM DR PETIT'S OFFICE INSTRUCT PATIENT TO EAT/DRINK UNTIL MIDNIGHT ON DAY BEFORE SURGERY, THEN CLEAR LIQUIDS ONLY UNTIL 3 HOURS PRE-OP. PT RELAYS UNDERSTANDING. (STANDING ORDERS INSTRUCT CLEAR LIQUIDS FOR SUPPER.) Original Note: Report to the Outpatient Waiting Room, entrance under the green pavilion located off [facility], at time ___7:30AM____ on date ___12/18/23____. Planned Procedure Time: __9:30AM . Time changes happen often and if your time is changed the preop area will call you the afternoon before. - You and your visitor will be asked to self-screen and do not enter if you have any COVID symptoms. - A mask is optional within the hospital at this time. Patients may have clear liquids (water, carbonated beverages, clear teas, apple juice) until 3 hours prior to surgery with a maximum of 20 ounces. - No food from midnight until time of surgery. Take the following medications with a SIP of water the morning of surgery: ___LEVOTHYROXINE. MAY TAKE ALPRAZOLAM NEEDED FOR ANXIETY. DO NOT STOP ANY OF YOUR OTHER PRESCRIPTION MEDICATIONS PRIOR TO SURGERY ?EXCEPT THE FOLLOWING Medications to discontinue per physician NONE Date to take last dose Please no make-up, nail mongolian, hairspray, perfume, deodorant, or body powder the day of surgery. No jewelry (including any body piercings) or valuables the day of surgery, leave them at home. Please take a shower or bath the night before, or the morning of, surgery with an antibacterial soap. Wear comfortable, loose fitting clothing. - Jewelry must be removed prior to entering the operating room. Rings and piercings that are not removed may be cut off. - The hospital will not accept responsibility for valuables. - Please leave all valuables, including medications, at home the day of surgery. If you are going home after surgery, a licensed delivery truck driver heavy must drive you home. - NO public transportation without another adult if you receive anesthesia. - We recommend that an adult stay with you for 24 hours following discharge. - We also recommend that you do not drive, make important decision, drink alcoholic beverages, or take any drugs that were not prescribed by your health care provider for at least 24 hours after your discharge time. Follow any additional instructions given to you from your surgeon. If you or anyone in your household have experienced Covid symptoms in the past week, please notify your surgeon or the nurse liaison at the phone number below for possible testing. Telephone instructions given to ____PATIENT and asked if any additional questions and then verbalized understanding. Patient advised to call surgeon office or pre surgery nurse liaison [phone] if any additional questions.
[2023-12-11 10:03] VITALS: BP 150/73; PULSE 68; RESP 16; TEMP 37.2; O2SAT 98; BMI 31.9
[2023-12-18] VITALS (18 sets, daily range): BP systolic 153–193; BP diastolic 72–103; PULSE 64–89; RESP 14–22; TEMP 36.1–37.6; O2SAT 92–100
[2023-12-18] MEDS: LACTATED RINGERS 1,000 ML 30 ML IV CONT (06:15)
--- NOTE | 2023-12-18 07:13 | WPDHPUPDATE1 ---
History and Physical Update Update Date/Time: 12/18/23 07:13 History and Physical has been reviewed, including an updated exam of the patient. There are NO changes in the patient's condition. Risks, benefits, and alternatives have been discussed and questions answered. Patient agrees to proceed with procedure.
--- NOTE | 2023-12-18 07:13 | WPDANESEPPF ---
Anes - Initial Pre Proc Eval Procedure: Operation Date: 12/18/23 07:30 Proposed Procedures p Laparoscopic Paraesophageal Hiatal Hernia Repair with Fundoplication, Davinci Assisted - Wilmer Ledesam DO Date/Time: 12/18/23 07:13 Surgeon: Wilmer Ledesma DO Pre Op Diagnosis: hiatal hernia Patient Data Age: 73 Gender: F Height: 1.65 m Weight: 86.6 kg Last Vital Signs Temp 37.2 C 12/11/23 10:03 Pulse 68 12/11/23 10:03 Resp 16 12/11/23 10:03 BP 150/73 H 12/11/23 10:03 Pulse Ox 98 12/11/23 10:03 O2 Del Method Room Air 12/11/23 10:03 Allergies Allergy/AdvReac Type Severity Reaction Status Date / Time adhesive tape AdvReac Intermediate REDNESS AT Verified 12/18/23 06:17 SITE, BLISTERS lisinopril AdvReac Mild Cough Verified 12/18/23 06:17 Home Medications Medication Instructions Recorded Confirmed Type oxybutynin chloride 5 mg See Rx Instructions .Route 06/19/23 12/18/23 Rx tablet,extended release 24 hr .COMPLEX #90 tabs atorvastatin 10 mg tablet 10 mg PO QHS #90 tabs 08/16/23 12/18/23 Rx alprazolam 0.5 mg tablet 0.5 mg PO DAILY PRN anxiety #30 08/19/23 12/18/23 Rx tabs levothyroxine 25 mcg tablet 25 mcg PO QAM 12/11/23 12/18/23 History losartan 25 mg tablet (Cozaar) 25 mg PO QAM 12/11/23 12/18/23 History omeprazole 20 mg capsule,delayed 20 mg PO QAM 12/11/23 12/18/23 History release Patient hx anesthesia problems: none Family hx anesthesia problems: none Results Review: All pre-operative results and documents have been reviewed as part of the pre-operative evaluation. [facility] Past Medical History Medical History Anemia Anxiety Essential hypertension Hiatal hernia History of blood transfusion History of esophageal dilatation x2 Hx of Hodgkin's lymphoma Hyperlipidemia Hypothyroid Obesity Sarcoidosis Surgical History Surgical History History of abdominoplasty History of breast biopsy History of tubal ligation History of wisdom tooth extraction Family History Family History Father Alcoholism Grandparent Diabetes mellitus Hypertension Heart problem Kidney disease Mother Hypertension Heart problem Son Hypertension Depression Anxiety Sibling Hypertension Heart problem Atrial fibrillation Brother Social History Social History Social History: Smoking packs per day: 1 Smoking cigarettes per day: 20.0 Years smoked: 6 Smoking pack-years: 6.00 Smoking status: Former smoker Tobacco type: cigarettes Smoking end date: 12/22/93 Additional smoking assessment comments: been 41 smoker, smoked for 10 years 15 to 26 or 30. Alcohol intake: never Substance use: never Substance use type: does not use Do You Feel Safe in your Home?: Yes Lack of Transportation: No Lack of Food: Never True Current Housing: I Have Housing Concerned About Future Housing: No Difficulty Paying Gas/Electric Bills: No Difficulty Paying for Meds: No Currently Unemployed: No Education: Bachelor's Degree Difficulty w/ Childcare or Family Care: No Living arrangements: alone Occupation/Education: retired Spiritual care concerns: No Agree to blood products: Yes Anes - Eval Final PreProcedure Day of Procedure 12/18/23 07:13 Patient weight: obese Heart: regular rate and rhythm and murmur Lungs: decreased breath sounds Airway: Mallampati scale class III Neurological: alert and oriented Last oral intake: >/= 8 hours ASA classification: III Emergent: no Anesthetic plan: proceed Anesthesia type and monitoring: general ETT and standard monitoring Results Review: All pre-operative results and documents have been reviewed as part of the pre-operative evaluation.
[2023-12-18] MEDS: ceFAZolin 2 GM/D5W 50 ML 2 GM/50 ML BAG IVPB (07:24)
[2023-12-18] MEDS: BUPIVACAINE/EPINEPHRINE 0.5% 10 ML VIAL 30 ML INFILTRATE (10:03)
--- NOTE | 2023-12-18 10:36 | W.PM.PROC2 ---
Procedure Note - Detailed Date of Procedure 12/18/23 Pre-op Diagnosis Hiatal hernia, GERD Post-op Diagnosis Same (Type III paraesophageal hiatal hernia, GERD) Procedure Performed Robotic assisted laparoscopic paraesophageal hernia repair with 270 degree fundoplication Surgeon Wilmer Ledesma, DO Anesthesia General and Local (0.5% bupivicaine with epi) Indications This is a 73-year-old woman who presented with a large hiatal hernia and gastroesophageal reflux disease. She previously underwent EGD about 1 year ago and had dilation of a stricture performed at that time. She was also placed omeprazole. She has continued to have reflux symptoms and epigastric pain despite anti reflux medication. A previous chest CT had shown evidence of a large hiatal hernia containing a portion of her stomach. She was then sent for esophageal manometry and pH study. Manometry showed normal esophageal motility and pH study showed a high DeMeester score of 46. She then followed up in the office to discuss further treatment and decision was made to proceed with robotic assisted laparoscopic hiatal hernia repair with fundoplication, possible mesh. Findings The patient was found to have a large type 3 paraesophageal hiatal hernia. A portion of her fundus and body of her stomach were protruding up into the hiatal hernia and the GE junction was located about 5 cm above the esophageal hiatus. Hiatal hernia repair was performed and then decision was made to proceed with 270 degree toupee fundoplication. The hiatal hernia sac was excised and sent to the lab for pathology. Description of Procedure Procedure as well as risks, benefits, and alternatives were discussed with the patient. Written consent was obtained and placed in chart prior to procedure. Patient was brought back to surgical suite. She was placed supine on operating table. Time-out was done to confirm patient and procedure. She was then intubated by the anesthesia department. Her abdomen was prepped and draped in sterile fashion using chlorhexidine prep. 0.5% bupivacaine with epinephrine was infiltrated locally around each area for port placement. An 8 mm incision was made in the left upper quadrant 2 cm inferior to the costal margin in the mid clavicular line. A 5 mm Optiview trocar was then advanced through the abdominal layers under direct visualization. Once inside the abdominal cavity, carbon dioxide insufflation was used to create a pneumoperitoneum. The camera was inserted in the abdomen was inspected. No immediate abnormalities were identified. Another 8 mm camera port was placed about 15 cm inferior to the xiphoid just to the left of midline under direct visualization. An 8 mm port was placed in the anterior axillary line on the left upper quadrant at about the same transverse plane as the camera port. An 8 mm port was placed in the right upper quadrant and another 8 mm AirSeal assist port was placed in right lower quadrant just to the right of the umbilicus. A 5 mm incision was made in the subxiphoid region and the Raymon liver retractor was inserted through this incision into the abdominal cavity to lift up the left lobe of the liver. This was secured in place to the bed of the table. The patient was then placed in 30? reverse Trendelenburg. The robotic arms were secured to the ports and the robotic camera and instruments were inserted. A force bipolar grasper was placed in the right upper quadrant port. The vessel sealer was placed in the midclavicular left upper quadrant port and a Cadiere grasper was placed in the anterior axillary line left upper quadrant port. I then moved over to the robotic console took control of the camera and instruments. A careful thorough exam was performed throughout the abdomen. The stomach was then reduced from within the hiatal hernia. The gastrohepatic ligament was taken down medially using the vessel sealer to identify the right patricia. Peritoneum along the m
[2023-12-18] MEDS: LABETALOL HCL INJ 100 MG/20 ML VIAL IV PUSH (12:00)
[2023-12-18] MEDS: fentaNYL CITRATE INJ (*CRX) 100 MCG/2 ML VIAL 25 MCG IV PUSH ×4 (12:06→12:23)
[2023-12-18] MEDS: hydrALAZINE HCL 20 MG/ML VIAL 10 MG IV PUSH ×2 (12:35→20:21)
--- NOTE | 2023-12-18 12:52 | ADMGEN ---
This patient, Eboni Gomes, was admitted to Medical Room 250-01. Patient/family oriented to hospital policies and general routines including ID bracelet, bed and alarms, visiting hours, pain management, procedures, bathroom and other care routines, personal items, smoking policy, room service/diet, and visiting hours. Information on how to activate the Rapid Response Team has been discussed. Patient/Family are encouraged to report perceived risks to care and to ask questions if they do not understand what they are told or what they should do.
[2023-12-18] MEDS: SIMETHICONE 80 MG TAB.CHEW PO ×3 (13:20→20:21)
[2023-12-18] MEDS: LACTATED RINGERS 1,000 ML 100 ML IV CONT (13:21)
[2023-12-18] MEDS: oxyCODONE HCL (*CRX) 5 MG TAB IR PO (14:01)
[2023-12-18] MEDS: ATORVASTATIN 10 MG TABLET PO (20:21)
[2023-12-18] MEDS: ONDANSETRON INJ 4 MG/2 ML VIAL IV PUSH (22:06)
[2023-12-18] MEDS: LOSARTAN POTASSIUM 25 MG TABLET PO (22:24)
[2023-12-19] VITALS (10 sets, daily range): BP systolic 149–184; BP diastolic 62–90; PULSE 90–97; RESP 18–22; TEMP 36.7–37.3; O2SAT 97–98
[2023-12-19] MEDS: hydrALAZINE HCL 20 MG/ML VIAL IV PUSH (02:13)
[2023-12-19 04:34] LABS: Hemoglobin 11.6 g/dL (12.0-15.0); Mean Corpuscular HGB Conc 32.2 g/dl (32-36); Mean Corpuscular Hemoglobin 27.6 pg (26-34); Mean Corpuscular Volume 85.7 fl (80-100); Mean Platelet Volume 10.7 fl (7.4-10.4); Platelet Count Result 262 k/mm3 (150-375); Red Cell Distribution Width 19.9 % (11.5-14.5); White Blood Count 15.6 K/mm3 (4.5-10.0)
[2023-12-19 04:48] LABS: Anion Gap 8 mmol/L (4-12); Blood Urea Nitrogen 15 mg/dL (7-17); Calcium 9.3 mg/dL (8.4-10.2); Carbon Dioxide 23 mmol/L (22-30); Chloride 104 mmol/L (98-107); Estimated CRCL calculation 68 ml/min; Estimated Glomerular Filt Rate > 60; Glucose 130 mg/dL (65-110); Potassium 3.7 mmol/L (3.4-5.0); Sodium 135 mmol/L (137-145)
[2023-12-19] MEDS: LEVOTHYROXINE SODIUM 25 MCG TABLET PO (05:50)
[2023-12-19] MEDS: oxyBUTYnin CHLORIDE XL 5 MG TAB.ER.24 PO (08:02)
[2023-12-19] MEDS: SIMETHICONE 80 MG TAB.CHEW PO ×4 (08:02→20:29)
[2023-12-19] MEDS: LOSARTAN POTASSIUM 25 MG TABLET PO ×2 (08:02→14:46)
[2023-12-19] MEDS: ENOXAPARIN 40 MG/0.4 ML SYRINGE SUB-Q (08:03)
[2023-12-19] MEDS: hydrALAZINE HCL 20 MG/ML VIAL 10 MG IV PUSH ×2 (09:06→16:05)
--- NOTE | 2023-12-19 11:43 | PM.DS ---
DS: Admitting Diagnosis Discharge Date 12/19/2023 Admitting Diagnosis Hiatal hernia, GERD DS: Discharge Diagnosis Discharge Diagnosis (1) Hiatal hernia: Code(s): K44.9 - Diaphragmatic hernia without obstruction or gangrene Status: Acute (2) GERD (gastroesophageal reflux disease): Qualifiers: Esophagitis presence: esophagitis presence not specified Qualified Code(s): K21.9 - Gastro-esophageal reflux disease without esophagitis Code(s): K21.9 - Gastro-esophageal reflux disease without esophagitis Status: Acute (3) Essential hypertension: Code(s): I10 - Essential (primary) hypertension Status: Acute DS: Summary Hospital Course Reason for hospitalization: Hiatal hernia Hospital Course: This is a 73-year-old woman who presented for hiatal hernia repair. She underwent robotic assisted laparoscopic paraesophageal hernia repair with 270 degree fundoplication on 12/18/2023. Surgery was uncomplicated and she was placed in outpatient extended recovery postoperatively. She was started on a clear liquid diet initially and pain was controlled with p.o. and IV pain medications as needed. She tolerated clear liquid diet and on postop day 1 was advanced to a full liquid diet. She tolerated this well and was denying any significant dysphagia. She was up ambulating with limited restrictions. She was experiencing some high blood pressure overnight and required some p.r.n. hydralazine orders. Hospitalist was consulted to help manage the high blood pressure. She felt that some of her high blood pressure might be anxiety related. Her blood pressure was somewhat improved on postop day 1. She was tolerating the full liquids and was remaining hemodynamically stable. She was discharged on postop day 1. Status at Discharge Functional status at discharge: independent ambulation Overall status at discharge: patient is progressing back to baseline Time Spent with Patient Time attestation: Total time spent providing and/or coordinating discharge services: Time spent: Less than 30 minutes Exam Const: General: comfortable and no acute distress Orientation/consciousness: patient oriented x3 Resp: Effort & Inspection: normal respiratory effort Auscultation: clear to auscultation bilaterally Cardio: Rate: regular rate Rhythm: regular rhythm Heart sounds: S1 normal heart sound present and S2 normal heart sound present GI: Inspection: non-distended and incision (intact with glue) GI Palp: Yes Soft to palpation and Yes Tenderness to palpation present (GI) (incisional) Auscultation: normal bowel sounds DS: Data Data Completed and Pending Pending studies at discharge: Pending at discharge 12/18/23 10:15 Surgical [PTH] Routine Labs on day of discharge: Labs from last 24 hours 12/19/23 04:25 WBC 15.6 H RBC 4.20 Hgb 11.6 L Hct 36.0 L MCV 85.7 MCH 27.6 MCHC 32.2 RDW 19.9 H Plt Count 262 MPV 10.7 H Sodium 135 L Potassium 3.7 Chloride 104 Carbon Dioxide 23 Anion Gap 8 BUN 15 Creatinine 0.70 Estim Creat Clear Calc 68 Estimated GFR > 60 Glucose 130 H Calcium 9.3 Discharge Plan Discharge Patient Disposition: Home, Self-Care Discharge Instructions: DISCHARGE INSTRUCTION SHEET FOR HERNIA, GALLBLADDER AND APPENDIX SURGERIES DR. PETIT PATIENT TO TAKE HOME 1. May shower, no soaking in bath x 2weeks. 2. Call office for: Wound increasingly painful or bleeding Vomiting Fever of greater than 101 degrees 3. If no bowel movement for three days, take 1 oz. (30 ml) Milk of Magnesia or MiraLax 17g 1 to 2 times daily. 4. No heavy lifting > 10-15 pounds x 4 weeks for hernia repairs 5. No driving for 3 days or while taking narcotic pain medications. 6. Ice to surgical site for 48 hours (30 min on, then 30 min off). 7. Up walking 10-30 minutes three times per day. 8. Resume prev
--- NOTE | 2023-12-19 14:29 | WPDANESPN ---
Anes - Prog Note Post-Op Date/Time: 12/19/23 14:29 Cardiovascular status: normal (hTN) Respiratory status: normal Airway patency: baseline Mental status: baseline Post-Op hydration status: normal Vital Signs: Last Vital Signs Temp 36.9 C 12/19/23 10:26 Pulse 90 12/19/23 10:26 Resp 20 12/19/23 10:26 BP 184/90 H 12/19/23 14:21 Pulse Ox 98 12/19/23 10:26 O2 Del Method Room Air 12/19/23 08:00 O2 Flow Rate 2 12/18/23 12:39 Pain Score (VAS): 10 I/O: Intake & Output 12/18/23 12/19/23 12/19/23 23:59 07:59 15:59 Intake Total 1070 930 Balance 1070 930 Laboratory Tests 12/19/23 04:25 12/19/23 04:25 12/19/23 04:25 WBC 15.6 H RBC 4.20 Hgb 11.6 L Hct 36.0 L MCV 85.7 MCH 27.6 MCHC 32.2 RDW 19.9 H Plt Count 262 MPV 10.7 H Sodium 135 L Potassium 3.7 Chloride 104 Carbon Dioxide 23 Anion Gap 8 BUN 15 Creatinine 0.70 Estim Creat Clear Calc 68 Estimated GFR > 60 Glucose 130 H Calcium 9.3 Post-procedural complaints: none Patient Feedback: Patient satisfied with anesthetic care.
[2023-12-19] MEDS: oxyCODONE HCL (*CRX) 2.5 MG TAB IR PO ×2 (16:10→20:32)
--- NOTE | 2023-12-19 16:59 | PM.IMCN ---
Assessment and Plan Assessment and plan (1) Hypertensive urgency: Code(s): I16.0 - Hypertensive urgency Status: Acute (2) Hiatal hernia: Code(s): K44.9 - Diaphragmatic hernia without obstruction or gangrene Status: Acute Plan Eboni Gomes is a 73 year old female with a history of obesity, hypertension, hypothyroidism, dyslipidemia, anxiety, hiatal hernia who underwent a robotic assisted laparoscopic paraesophageal hernia repair with [address] Ledesma on 12/18/23. There were no apparent complications. During the procedure her average blood pressure was much lower in the 120s to 140s. She received famotidine 20 mg, Dilaudid 0.5 mg, Versed 1 mg, cefazolin 2 g, lidocaine 100 mg, propofol 200 mg, succinylcholine 100 mg, rocuronium 90 mg total, dexamethasone 8 mg, ephedrine sulfate 5 mg, phenylephrine 100 mcg. Afterwards the patient complained of right-sided back pain and neck pain which resolved with pain medication in fact the oxycodone was too strong for her she reported. At time of evaluation she was not in pain. She reports at home her systolic blood pressures typically between 140 and 150. Blood pressure was 184/90 confirmed with manual take. She received 25 mg p.o. losartan which did [employer] medication. She received another 25 mg p.o. x1 and her blood pressure remained high 184/90. Nurse instructed to give another dose of hydralazine 10 mg IV which is already on her profile. With recheck in 1 hour. Tomorrow her losartan has been changed to 50 mg p.o. q.day as well. Recommend holding discharge to get better blood pressure control. Has mild leukocytosis but no other symptomatology to indicate infection. This could be reactive. Check white count and procalcitonin in the morning. HPI Date of Consult Consult date: 12/19/23 Requesting Physician: Wilmer Ledesma DO Primary Care Provider: Yvette Castillo DO Consult Narrative Reason for consult: Medical management Narrative: Eboni Gomes is a 73 year old female with a history of obesity, hypertension, hypothyroidism, dyslipidemia, anxiety, hiatal hernia who underwent a robotic assisted laparoscopic paraesophageal hernia repair with [address] Ledesma on 12/18/23. There were no apparent complications. Afterwards the patient complained of right-sided back pain and neck pain which resolved with pain medication in fact the oxycodone was too strong for her she reported. At time of evaluation she was not in pain. She reports at home her systolic blood pressures typically between 140 and 150. Blood pressure was 184/90 confirmed with manual take. She received 25 mg p.o. losartan which did [employer] medication. She received another 25 mg p.o. x1 and her blood pressure remained high 184/90. Nurse instructed to give another dose of hydralazine 10 mg IV which is already on her profile. It will recheck in 1 hour. Tomorrow her losartan has been changed to 50 mg p.o. q.day as well. Recommend holding discharge to get better blood pressure control. Review of Systems Review of Systems: All systems reviewed & are unremarkable except as noted in HPI and below (Subjective) [facility] Past Medical History Medical History Anemia Anxiety Essential hypertension Hiatal hernia History of blood transfusion History of esophageal dilatation x2 Hx of Hodgkin's lymphoma Hyperlipidemia Hypothyroid Obesity Sarcoidosis Surgical History Surgical History History of abdominoplasty History of breast biopsy History of tubal ligation History of wisdom tooth extraction Family History Family History Father Alcoholism Grandparent Diabetes mellitus Hypertension Heart problem Kidney disease Mother Hypertension Heart problem Son Hypertension Depr
[2023-12-19] MEDS: ALPRAZolam (*CRX) 0.5 MG TABLET PO (17:10)
[2023-12-19] MEDS: ATORVASTATIN 10 MG TABLET PO (20:29)
[2023-12-20 04:00] VITALS: BP 165/75; PULSE 82; RESP 17; TEMP 36.8; O2SAT 95
[2023-12-20] MEDS: oxyCODONE HCL (*CRX) 2.5 MG TAB IR PO (04:48)
[2023-12-20] MEDS: hydrALAZINE HCL 20 MG/ML VIAL 10 MG IV PUSH (04:49)
[2023-12-20 05:02] LABS: Basophils Absolute Auto 0.1 K/mm3 (0.0-0.1); Basophils Percent Auto 0.6 % (0.2-1.2); Eosinophils Percent Auto 0.3 % (0-4.4); Immature Granulocyte Absolute 0.06 K/mm3 (0.00-0.031); Immature Granulocyte Percent A 0.5 % (0-0.5); Lymphocytes Percent Auto 21.8 % (18.3-44.2); Mean Corpuscular HGB Conc 30.8 g/dl (32-36); Mean Corpuscular Hemoglobin 27.3 pg (26-34); Mean Corpuscular Volume 88.8 fl (80-100); Mean Platelet Volume 10.7 fl (7.4-10.4); Monocytes Percent Auto 9.1 % (2.6-8.5); Neutrophils Absolute Auto 7.8 K/mm3 (1.3-6.7); Neutrophils Percent Auto 67.7 % (45.5-73.1); Platelet Count Result 253 k/mm3 (150-375); Red Blood Count 4.39 M/mm3 (4.2-5.4); Red Cell Distribution Width 19.9 % (11.5-14.5); White Blood Count 11.5 K/mm3 (4.5-10.0)
[2023-12-20 05:11] LABS: Anion Gap 8 mmol/L (4-12); Blood Urea Nitrogen 14 mg/dL (7-17); Calcium 9.2 mg/dL (8.4-10.2); Carbon Dioxide 26 mmol/L (22-30); Chloride 104 mmol/L (98-107); Estimated CRCL calculation 60 ml/min; Estimated Glomerular Filt Rate > 60; Glucose 115 mg/dL (65-110); Magnesium 2.2 mg/dL (1.6-2.3); Potassium 3.6 mmol/L (3.4-5.0); Sodium 138 mmol/L (137-145)
[2023-12-20] MEDS: LEVOTHYROXINE SODIUM 25 MCG TABLET PO (05:24)
[2023-12-20 05:38] LABS: Procalcitonin 0.2 ng/mL
[2023-12-20 06:15] VITALS: BP 138/64
--- NOTE | 2023-12-20 07:54 | PM.IMPN ---
Progress Note: A&P Assessment and Plan (1) Hypertensive urgency: Code(s): I16.0 - Hypertensive urgency Status: Acute Assessment and Plan: Greatly improved. Prescription made for losartan 50 mg q.day, this is an increase from her 25 mg HEAD GREENSKEEPER. Advised patient follow-up with PCP. Clear for discharge from a medical standpoint. (2) Leukocytosis: Code(s): D72.829 - Elevated white blood cell count, unspecified Status: Acute Assessment and Plan: Improved, almost normalized. Likely reactive due to surgery. Subjective Date/time seen: 12/20/23 07:54 Interval history: naoe. pt ready to be discharged. reports improved neck pain Review of Systems Review of Systems: All systems reviewed & are unremarkable except as noted in HPI and below (Subjective) Exam Const: General: comfortable and no acute distress Eyes: Pupils: Equal, round and reactive pupils present Neck: Neck: supple Resp: Effort & Inspection: normal respiratory effort Auscultation: clear to auscultation bilaterally Cardio: Rate: regular rate Rhythm: regular rhythm GI: GI Palp: Yes Soft to palpation and No Tenderness to palpation present (GI) Other: No bruit Extrem: General: no edema Objective Data Vital Signs Vital Signs: Vital Signs - 24 hr 12/19/23 09:05 12/19/23 09:55 12/19/23 10:26 Temperature 98.5 F Pulse Rate 90 Respiratory Rate 20 Blood Pressure 178/82 H 152/65 H 163/72 H Pulse Oximetry 98 Oxygen Delivery 12/19/23 08:00 12/19/23 14:21 12/19/23 14:26 Temperature 99.2 F Pulse Rate 97 Respiratory Rate 22 H Blood Pressure 184/90 H 174/80 H Pulse Oximetry 98 Oxygen Delivery Room Air 12/19/23 16:05 12/19/23 17:13 12/19/23 20:00 Temperature 98.1 F Pulse Rate 95 Respiratory Rate 18 Blood Pressure 184/90 H 158/80 H 151/73 H Pulse Oximetry 98 Oxygen Delivery 12/20/23 04:00 12/20/23 06:15 Temperature 98.3 F Pulse Rate 82 Respiratory Rate 17 Blood Pressure 165/75 H 138/64 Pulse Oximetry 95 Oxygen Delivery Intake/Output Intake/Output: Intake & Output 12/17/23 12/18/23 12/19/23 12/20/23 23:59 23:59 23:59 23:59 Intake Total 1370 1110 Balance 1370 1110 Meds/Results Medications: Active Medications Generic Name Dose Route Start Last Admin Trade Name Soyq PRN Reason Stop Dose Admin Acetaminophen 500 mg 12/18/23 12:41 Acetaminophen 500 Mg Tablet PO Q6H PRN Pain Rated 1-3 Alprazolam 0.5 mg 12/18/23 12:41 12/19/23 17:10 Alprazolam (*Crx) 0.5 Mg Tablet PO 0.5 mg DAILY PRN Administration anxiety Atorvastatin Calcium 10 mg 12/18/23 21:00 12/19/23 20:29 Atorvastatin 10 Mg Tablet PO 10 mg QHS ELSI Administration Enoxaparin Sodium 40 mg 12/19/23 09:00 12/19/23 08:03 Enoxaparin 40 Mg/0.4 Ml Syringe SUB-Q 40 mg DAILY ELSI Administration Ibuprofen 800 mg in 200 mls @ 400 mls/hr 12/18/23 12:41 Caldolor 800 Mg/200 Ml IVPB Q6H PRN Breakthrough Pain Rated 1-3 or NPO Levothyroxine Sodium 25 mcg 12/19/23 06:30 12/20/23 05:24 Levothyroxine Sodium 25 Mcg Tablet PO 25 mcg DAILY@0630 ELSI Administration Losartan Potassium 50 mg 12/20/23 09:00 Losartan Potassium 50 Mg Tablet PO QAM ELSI Morphine Sulfate 2 mg 12/18/23 12:41 Morphine Sulfate (*Crx) 2 Mg/Ml Inj IV PUSH Q2H PRN Breakthrough Pain Rated 4-6 or NPO Morphine Sulfate 4 mg 12/18/23 12:41 Morphine Sulfate (*Crx) 4 Mg/Ml Inj IV PUSH Q2H PRN Breakthrough Pain Rated 7-10 or NPO Naloxone HCl 0.1 mg 12/18/23 12:41 Naloxone Hcl 0.4 Mg/Ml Vial IV PUSH Q2M PRN Opiate Reversal Ondansetron HCl 4 mg 12/18/23 12:41 12/18/23 22:06 Ondansetron Inj 4 Mg/2 Ml Vial IV PUSH 4 mg Q4H PRN Administration Nausea And Vomiting Oxybutynin Chloride 5 mg 12/19/23 09:00 12/19/23 08:02 Oxybutynin Chloride Xl 5 Mg Tab.Er.24 PO 5 mg QAM ELSI Admini
[2023-12-20 08:06] VITALS: BP 146/63; PULSE 91; RESP 18; TEMP 36.1; O2SAT 97
[2023-12-20] MEDS: SIMETHICONE 80 MG TAB.CHEW PO (08:32)
[2023-12-20] MEDS: oxyBUTYnin CHLORIDE XL 5 MG TAB.ER.24 PO (08:33)
[2023-12-20] MEDS: ENOXAPARIN 40 MG/0.4 ML SYRINGE SUB-Q (08:33)
[2023-12-20] MEDS: LOSARTAN POTASSIUM 50 MG TABLET PO (08:33)
[2023-12-20 10:30] VITALS: BP 135/73; PULSE 86; RESP 18; TEMP 37.1; O2SAT 97
== END 2023-12-20 11:54 | disposition home or self-care (01) ==
LOC: ANHSURGERY 08:56 → ANH2MED 12:49
PROVIDERS: General Practice; PCP Family Medicine; Visit Provider Surgery
PROC: 0DV44ZZ Restriction of Esophagogastric Junction, Percutaneous Endoscopic Approach (ICD-10-PCS; CPT 43280; principal; 2023-12-18 07:30)
DX: K44.9 Diaphragmatic hernia without obstruction or gangrene (principal); I16.0 Hypertensive urgency; K21.9 Gastro-esophageal reflux disease without esophagitis; D64.9 Anemia, unspecified; F41.9 Anxiety disorder, unspecified; I10 Essential (primary) hypertension; E78.5 Hyperlipidemia, unspecified; E03.9 Hypothyroidism, unspecified; E66.9 Obesity, unspecified; Z68.31 Body mass index [BMI] 31.0-31.9, adult; Z98.890 Other specified postprocedural states; Z98.51 Tubal ligation status; Z87.891 Personal history of nicotine dependence; Z82.49 Family history of ischemic heart disease and other diseases of the circulatory system
CPT/HCPCS: 43281; 36415; 80048; 83735; 84145; 85014; 85018; 85025; 85027; 86850; 86900; 86901; 88302; 93005; A9270; J0330; J0360; J0690; J1100; J1170; J1650; J2250; J2371; J2405; J2704; J3010; J7030; J7120

== ENCOUNTER 2024-03-19 09:32 | Outpatient (CLI) | payer MEDICARE, SELFPAY ==
[2024-03-19 10:04] LABS: Basophils Absolute Auto 0.1 K/mm3 (0.0-0.1); Basophils Percent Auto 1.2 % (0.2-1.2); Eosinophils Absolute Auto 0.2 K/mm3 (0-0.3); Eosinophils Percent Auto 2.4 % (0-4.4); Hematocrit 40.7 % (37.0-47.0); Hemoglobin 13.1 g/dL (12.0-15.0); Immature Granulocyte Absolute 0.05 K/mm3 (0.00-0.031); Immature Granulocyte Percent A 0.6 % (0-0.5); Lymphocytes Absolute Auto 1.91 K/mm3 (0.9-3.2); Lymphocytes Percent Auto 21.4 % (18.3-44.2); Mean Corpuscular HGB Conc 32.2 g/dl (32-36); Mean Corpuscular Hemoglobin 29.6 pg (26-34); Mean Corpuscular Volume 91.9 fl (80-100); Mean Platelet Volume 11.4 fl (7.4-10.4); Monocytes Absolute Auto 0.6 K/mm3 (0.1-0.6); Monocytes Percent Auto 6.6 % (2.6-8.5); Neutrophils Percent Auto 67.8 % (45.5-73.1); Platelet Count Result 253 k/mm3 (150-375); Red Blood Count 4.43 M/mm3 (4.2-5.4); Red Cell Distribution Width 13.1 % (11.5-14.5); White Blood Count 8.9 K/mm3 (4.5-10.0)
[2024-03-19 12:12] LABS: Folic Acid 10.2 ng/mL (2.76->20)
[2024-03-19 13:19] LABS: Iron 81 ug/dL (37-170)
[2024-03-19 13:26] LABS: Percent Iron Saturation 23 % (20-50)
== END 2024-03-19 09:33 | disposition home or self-care (01) ==
LOC: ANHLAB 09:34
PROVIDERS: PCP Family Medicine; Visit Provider Internal Medicine Hematology & Oncology
DX: D50.8 Other iron deficiency anemias (principal)
CPT/HCPCS: 36415; 82607; 82728; 82746; 83540; 83550; 85025

== ENCOUNTER 2024-04-07 08:59 | Outpatient (CLI) | payer MEDICARE, SELFPAY ==
--- NOTE | ~2024-04-07 | MR_ITS ---
MRI of the left knee Clinical history: Pain Technique: Coronal proton density and proton density-weighted images, sagittal proton-density and T2 fat-sat images, and axial proton-density fat-saturated images were acquired. Findings: Anterior and posterior cruciate ligaments are intact. Medial collateral ligament and the la teral collateral ligament complex are intact. There is probable chronic thickening and mild increased signal of the proximal fibular collateral ligament. Popliteus tendon is intact. Medial and lateral menisci are intact, without evidence of tear. There is high-grade chondromalacia at the patellar apex and medial patellar facet. There is mild to m oderate chondromalacia the femoral trochlea. There is subchondral insufficiency fracture of the later al femoral condyle with extensive surrounding marrow edema. There is mild chondral thinning in the me dial lateral compartments. Extensor mechanism is intact. Minimal joint effusion present. Minimal Omer's cyst. Impression: Subchondral insufficiency fracture in the lateral femoral condyle, with extensive surrounding marrow edema. Chondromalacia of the patellofemoral compartment, as detailed above. Reviewed, dictated and finalized at location M. Impression: Subchondral insufficiency fracture in the lateral femoral condyle, with extensi ve surrounding marrow edema. Chondromalacia of the patellofemoral compartment, as detailed above.
== END 2024-04-07 09:00 | disposition home or self-care (01) ==
LOC: GOSHIMG 08:59
PROVIDERS: PCP Orthopaedic Surgery; Visit Provider Orthopaedic Surgery
DX: S89.92XA Unspecified injury of left lower leg, initial encounter (principal); X58.XXXA Exposure to other specified factors, initial encounter
CPT/HCPCS: 73721

== ENCOUNTER 2024-08-14 08:19 | Outpatient (CLI) | payer MEDICARE, SELFPAY ==
--- OUTSIDE RECORDS SUMMARY | 2024-08-14 08:32 | XMS_ITS | Clinical Summary ---
Author Organization [facility] [place] [address] Address [address] [place] [address] Care Team Providers Care Pesticide Chemist Name Role Phone Yvette Castillo DO Primary Care Provider + Allergies No known active allergies Medications oxyBUTYnin (DITROPAN) 5 mg tablet Take 1 tablet (5 mg total) by mouth daily Active levothyroxine (SYNTHROID) 25 mcg tablet Take 1 tablet (25 mcg total) by mouth test equipment mechanic before breakfast Active atorvastatin (LIPITOR) 10 mg tablet Take 1 tablet (10 mg total) by mouth daily Active ferrous sulfate 325 mg (65 mg of elemental iron) tabletIndications: Iron Deficiency Anemia Take 1 tablet (65 mg of elemental iron total) by mouth 2 (two) times a day Active losartan (COZAAR) 25 mg tablet Take 1 tablet (25 mg total) by mouth daily Active ALPRAZolam (NIRAVAM) 0.5 mg disintegrating tablet Take 1 tablet (0.5 mg total) by mouth nightly as needed for anxiety Active omeprazole OTC (PriLOSEC OTC) 20 mg EC tablet Take 1 tablet (20 mg total) by mouth daily Active fluorouraciL (EFUDEX) 5 % cream APPLY TOPICALLY TO FACE TWICE DAILY FOR 4 WEEKS 4 Active Surgical History Surgery Date Site/Laterality Comments COLONOSCOPY UPPER GASTROINTESTINAL ENDOSCOPY TUBAL LIGATION ABDOMINOPLASTY Medical History Medical History Date Comments Anemia Sarcoidosis GERD (gastroesophageal reflux disease) Hodgkin's lymphoma (HCC) at age 20 Hypertension Heart murmur Hypothyroidism Urinary frequency Anxiety Social History Tobacco Use Types Packs/Day Years Used Date Smoking Tobacco: Former Cigarettes Q uit: 1993 Tobacco Cessation:Counseling Given: Not Answered Personal Safety Answer Date Recorded Have you ever been in or are you currently in a harmful physical or emotional relationship or is someone making you feel afraid or unsafe? Denies 10/21/2023 Comments Unknown Sex and Gender Information Value Date Recorded Sex Assigned at Not on file Legal Sex Female 9:05 AM CDT Gender Identity Not on file Sexual Orientation Not on file Obstetrics History Last Filed Vital Signs Vital Sign Reading Time Taken Comments Blood Pressure 173/78 10/21/2023 10:47 AM CDT Pulse 92 10/21/2023 10:47 AM CDT Temperature - - Respiratory Rate 16 10/21/2023 10:47 AM CDT Oxygen Saturation - - Inhaled Oxygen Concentration - - Weight 83.9 kg (185 lb) 10/21/2023 10:47 AM CDT Height 165.1 cm (5' 5 ) 10/21/2023 10:47 AM CDT Body Mass Index 30.79 10/21/2023 10:47 AM CDT Plan of Treatment Health Maintenance Due Date Last Done Comments Breast Cancer Screening-Mammogram 1950 Colon Cancer Screening-Colonoscopy 1950 Depression Screening 1950 Fall Risk Assessment 1950 Hepatitis C Screening 1950 Osteoporosis Screening-Bone Density Scan 1950 DTaP/Tdap/Td Vaccine (1 - Tdap) 10/11/1962 Hepatitis B Screening 10/11/1969 Pneumococcal vaccine 65+ (1 of 1 - PCV) 10/11/2001 Zoster Vaccine (1 of 2) 10/11/2001 Well Visit 65+ 10/11/2016 Influenza Vaccine (#1) 2024 04/09/2020 Insurance [employer] Care Teams Pesticide Chemist Relationship Specialty Start Date End Date Yvette Castillo DO [address] [place] [address] DR BOOTH [address] [place] [id number] PCP - General Family Medicine 10/29/23
--- OUTSIDE RECORDS SUMMARY | 2024-08-14 08:32 | XMS_ITS | Referral Summary ---
Author Organization [facility] [place] [address] Address [address] [place] [address] Care Team Providers Care Client Account Specialist Name Role Phone Yvette Castillo DO Primary Care Provider + Allergies No known active allergies Medications oxyBUTYnin (DITROPAN) 5 mg tablet Take 1 tablet (5 mg total) by mouth daily Active levothyroxine (SYNTHROID) 25 mcg tablet Take 1 tablet (25 mcg total) by mouth medical charge entry specialist before breakfast Active atorvastatin (LIPITOR) 10 mg [...] TWICE DAILY FOR 4 WEEKS 4 Active Social History Tobacco Use Types Packs/Day Years [...] on file Sexual Orientation Not on file Last Filed Vital Signs Vital Sign Reading [...] 10/21/2023 10:47 AM CDT Plan of Treatment Not on file Insurance [employer] Care Teams Client Account Specialist Relationship Specialty Start Date End Date Castillo, Yvette Luisa, DO [address] [place] [address] DR BOOTH [address] [place] [address], [place] [address] PCP - General Family Medicine 10/29/23
--- OUTSIDE RECORDS SUMMARY | 2024-08-14 08:32 | XMS_ITS | Clinical Summary ---
Author Organization [facility] Patricia Pederson Address [address] [place] [address] Care Team Providers Care Firmware Software Verification Engineer Name Role Phone Yvette Castillo Primary Care Provider + Allergies No known active allergies Medications atorvastatin (LIPITOR) 10 mg tablet Take 10 mg by mouth daily. Active losartan (COZAAR) 25 mg tablet Take 25 mg by mouth daily. Active oxyBUTYnin (DITROPAN) 5 mg tablet Take 5 mg by mouth daily. Active levothyroxine 25 mcg tablet Take 25 mcg by mouth daily. Active omeprazole magnesium (PriLOSEC) 20 mg Tablet, Delayed Release (E.C.) Take 20 mg by mouth daily. Active ferrous sulfate 325 mg (65 mg iron) Tablet, Delayed Release (E.C.) Take 1 Tablet (325 mg) by mouth 2 times daily. 90 Tablet 2 09/24/2023 Active Active Problems Problem Noted Date Diagnosed Date Anemia, unspecified 04/20/2024 Iron deficiency anemia, unspecified 04/20/2024 Encounters Date Type Department Care Team Description 08/11/2024 External Device Data [facility] Provider, Abstract 07/16/2024 External Device Data [facility] Provider, Abstract 07/14/2024 External Device Data [facility] Provider, Abstract 07/07/2024 External Device Data [facility] Provider, Abstract from Last 3 Months Family History Medical History Relation Name Comments Heart Disease Brother No Known Problems Child 1 No Known Problems Child 2 COPD Father No Known Problems Mother Relation Name Status Comments Brother Alive Child 1 Alive Child 2 Alive Father Mother Social History Tobacco Use Types Packs/Day Years Used Date Smoking Tobacco: Former Cigarettes 0.5 10 Q uit: 09/23/1993 Smokeless Tobacco: Never Alcohol Use Standard Drinks/Week Comments Never 0 (1 standard drink = 0.6 oz pur e alcohol) Comments Unknown Sex and Gender Information Value Date Recorded Sex Assigned at Not on file Legal Sex Female 4:02 PM CDT Gender Identity Not on file Sexual Orientation Not on file Last Filed Vital Signs Vital Sign Reading Time Taken Comments Blood Pressure 164/93 03/20/2024 10:56 AM CDT Pulse 73 03/20/2024 10:53 AM CDT Temperature 36.3 C (97.3 F) 03/20/2024 10:53 AM CDT Respiratory Rate 15 03/20/2024 10:53 AM CDT Oxygen Saturation 98% 03/20/2024 10:53 AM CDT Inhaled Oxygen Concentration - - Weight 79.4 kg (175 lb) 03/20/2024 10:53 AM CDT Height 165.1 cm (5' 5 ) 09/24/2023 10:20 AM CDT Body Mass Index 29.12 09/24/2023 10:20 AM CDT Plan of Treatment Health Maintenance Due Date Last Done Comments DTAP/TDAP/TD VACCINES (1 - Tdap) 10/11/1970 BREAST CANCER SCREENING 1991 COLORECTAL SCREENING 10/11/1996 Colorectal Cancer Screening 10/11/1996 FIT-DNA Q 3 years 10/11/1996 FIT/FOBT Q 1 year 10/11/1996 Flex Sig/CT Colonography Q 5 years 10/11/1996 PNEUMOCOCCAL VACCINE 65+ YEARS (1 of 1 - PCV) 10/12/19 ZOSTER VACCINE (1 of 2) 10/11/2001 OSTEOPOROSIS SCREENING 10/11/2016 INFLUENZA VACCINE (#1) 2024 RSV VACCINE (60+ or ) (1 - 1-dose 75+ series) 10/11/2026 Insurance Care Teams Firmware Software Verification Engineer Relationship Specialty Start Date End Date Yvette Castillo DO [address] [place] [address] [place] [id number] PCP - General Family Practice 03/20/24
[2024-08-14 14:53] LABS: Basophils Absolute Auto 0.1 K/mm3 (0.0-0.1); Eosinophils Absolute Auto 0.4 K/mm3 (0-0.3); Eosinophils Percent Auto 4.4 % (0-4.4); Hematocrit 41.2 % (37.0-47.0); Hemoglobin 12.8 g/dL (12.0-15.0); Immature Granulocyte Absolute 0.04 K/mm3 (0.00-0.031); Immature Granulocyte Percent A 0.5 % (0-0.5); Lymphocytes Absolute Auto 2.73 K/mm3 (0.9-3.2); Lymphocytes Percent Auto 31.6 % (18.3-44.2); Mean Corpuscular HGB Conc 31.1 g/dl (32-36); Mean Corpuscular Hemoglobin 29.4 pg (26-34); Mean Corpuscular Volume 94.5 fl (80-100); Mean Platelet Volume 12.3 fl (7.4-10.4); Monocytes Absolute Auto 0.6 K/mm3 (0.1-0.6); Monocytes Percent Auto 7.1 % (2.6-8.5); Neutrophils Absolute Auto 4.8 K/mm3 (1.3-6.7); Neutrophils Percent Auto 55.4 % (45.5-73.1); Platelet Count Result 301 k/mm3 (150-375); Red Blood Count 4.36 M/mm3 (4.2-5.4); Red Cell Distribution Width 12.5 % (11.5-14.5); White Blood Count 8.6 K/mm3 (4.5-10.0)
[2024-08-14 14:59] LABS: Alanine Aminotransferase 23 U/L (6-35); Albumin Level 4.1 g/dL (3.5-5.1); Alkaline Phosphatase 97 U/L (38-126); Anion Gap 8 mmol/L (4-12); Aspartate Amino Transferase 23 U/L (14-36); Bilirubin,Total 0.5 mg/dL (0.2-1.3); Blood Urea Nitrogen 29 mg/dL (7-17); Calcium 9.5 mg/dL (8.4-10.2); Carbon Dioxide 29 mmol/L (22-30); Chloride 104 mmol/L (98-107); Cholesterol 158 mg/dL (0-200); Estimated Glomerular Filt Rate > 60; Glucose 103 mg/dL (65-110); HDL Direct 53 mg/dL; Potassium 4.8 mmol/L (3.4-5.0); Sodium 141 mmol/L (137-145); Triglycerides 128 mg/dL (<150)
[2024-08-14 15:10] LABS: LDL Cholesterol Direct 67 mg/dL
[2024-08-14 15:39] LABS: Free T4 Free Thyroxine 1.02 ng/dL (0.78-2.19); Vitamin D 25 Hydroxy 25.9 ng/mL
== END 2024-08-14 08:20 | disposition home or self-care (01) ==
LOC: ANHGOSHLAB 08:21
PROVIDERS: PCP Family Medicine; Visit Provider Family Medicine
DX: D64.9 Anemia, unspecified (principal); E03.9 Hypothyroidism, unspecified; E78.5 Hyperlipidemia, unspecified; R53.83 Other fatigue; E55.9 Vitamin D deficiency, unspecified; R73.9 Hyperglycemia, unspecified; I10 Essential (primary) hypertension; Z86.2 Personal history of diseases of the blood and blood-forming organs and certain disorders involving the immune mechanism
CPT/HCPCS: 36415; 80053; 80061; 82306; 83036; 84439; 84443; 85025

== ENCOUNTER 2024-11-06 07:19 | Outpatient (CLI) | payer MEDICARE, SELFPAY ==
[2024-11-06 09:17] LABS: IFOB Positive Control Positive; Immunochemical Fecal Occult Bl Negative (N)
[2024-11-06 09:59] LABS: Toxigenic C. Diff NEGATIVE (NEGATIVE)
[2024-11-13 10:49] LABS: Calprotectin, Stool 87
== END 2024-11-06 07:20 | disposition home or self-care (01) ==
LOC: ANHLAB 07:19
PROVIDERS: PCP Family Medicine; Visit Provider Family Medicine
DX: R19.7 Diarrhea, unspecified (principal)
CPT/HCPCS: 82274; 83993; 87045; 87177; 87209; 87269; 87427; 87449; 87493; 89055

== ENCOUNTER 2025-02-17 14:30 | Outpatient (CLI) | payer MEDICARE, SELFPAY ==
--- OUTSIDE RECORDS SUMMARY | 2025-02-17 14:37 | XMS_ITS | Clinical Summary ---
Author Organization [facility] Patricia Pederson Address [address] [place] [address] Care Team Providers Care Neon Molder Name Role Phone Yvette Castillo Primary Care [...] Encounters Date Type Department Care Team Description 01/06/2025 External Device Data [facility] Provider, Abstract 01/05/2025 External Device Data [facility] Provider, Abstract 12/15/2024 External Device Data [facility] Provider, Abstract 12/08/2024 External Device Data [facility] Provider, Abstract 11/17/2024 External Device Data [facility] Provider, Abstract [...] 10:53 AM CDT Height 165.1 cm (5' 5) 09/24/2023 10:20 AM CDT Body Mass Index 29.12 09/24/2023 10:20 AM CDT Plan of Treatment Health Maintenance Due Date Last Done Comments DTAP/TDAP/TD VACCINES (1 - Tdap) 10/11/1970 BREAST CANCER SCREENING 1991 COLORECTAL SCREENING 10/11/1996 Colorectal Cancer Screening 10/11/1996 FIT-DNA Q 3 years 10/11/1996 FIT/FOBT Q 1 year 10/11/1996 Flex Sig/CT Colonography Q 5 years 10/11/1996 PNEUMOCOCCAL VACCINE 50+ YEARS (1 of 1 - PCV) 10/12/19 02 ZOSTER VACCINE (1 of 2) 10/11/2001 OSTEOPOROSIS SCREENING 10/11/2016 INFLUENZA VACCINE (#1) 2025 RSV VACCINE (60+ or ) (1 - 1-dose 75+ series) 10/11/2026 Insurance [facility] [id number] Care Teams Neon Molder Relationship Specialty Start Date End Date Yvette Castillo DO [address] [place] [address] [place] [address] PCP - General Family Practice 03/20/24
--- OUTSIDE RECORDS SUMMARY | 2025-02-17 14:37 | XMS_ITS | Clinical Summary ---
Author Organization [facility] [place] [address] Address [address] [place] [address] Care Team Providers Care Lock And Dam Repairer Name Role Phone Yvette Castillo DO Primary Care Provider + Allergies No known active allergies Medications oxyBUTYnin (DITROPAN) 5 mg tablet Take 1 tablet (5 mg total) by mouth daily Active levothyroxine (SYNTHROID) 25 mcg tablet Take 1 tablet (25 mcg total) by mouth granulator operator before breakfast Active atorvastatin (LIPITOR) 10 mg [...] 10:47 AM CDT Height 165.1 cm (5' 5) 10/21/2023 10:47 AM CDT Body Mass Index [...] Well Visit 65+ 10/11/2016 Influenza Vaccine (#1) 2025 04/09/2020 Insurance [facility] Address: [address] [address] [place] [address] UHC MEDICARE ADVANTAGE [facility] Address: [address] [address] [place] [address] Care Teams Lock And Dam Repairer Relationship Specialty Start Date End Date Yvette Castillo DO [address] [place] [address] [id number] PCP - General Family Medicine 10/29/23
[2025-02-17 17:08] LABS: Free T4 Free Thyroxine 1.07 ng/dL (0.78-2.19)
[2025-02-17 17:19] LABS: Thyroid Stimulating Hormone 2.950 uIU/mL (0.465-4.680)
== END 2025-02-17 14:31 | disposition home or self-care (01) ==
LOC: ANHGOSHLAB 14:31
PROVIDERS: PCP Family Medicine; Visit Provider Family Medicine
DX: E03.9 Hypothyroidism, unspecified (principal)
CPT/HCPCS: 36415; 84439; 84443